=== PATIENT | female | born 1965 | race Caucasian/White ===

== ENCOUNTER 2024-09-21 11:05 | Day surgery (SDC) | payer OTHER ==
[~2024-09-21 11:05] MED LIST: LACTATED RINGERS 1,000 ML IV SCH; LIDOCAINE 1% (10MG/ML) FOR IV START INTRADERMA PRN
[2024-09-21] MEDS: IV FLUID CONTINUATION 1,000 ML IV ONE (11:29)
[2024-09-21 11:39] VITALS: RESP 16; TEMP 98
[2024-09-21] MEDS: LACTATED RINGERS 1,000 ML IV SCH (11:46)
[2024-09-21] MEDS ORDERED: LIDOCAINE 2% (PF) 20 MG/ML 5 ML VIAL ONE (11:52)
[2024-09-21] MEDS ORDERED: PROPOFOL 10 MG/ML 20 ML VIAL IV ONE (11:52)
[2024-09-21] MEDS ORDERED: KETAMINE HCL IN 0.9 % NACL 50 MG/5 ML SYRINGE ONE (11:52)
[2024-09-21] MEDS ORDERED: ONDANSETRON 4 MG/2 ML VIAL ONE (11:52)
[2024-09-21] MEDS ORDERED: MIDAZOLAM 2 MG/2 ML VIAL ONE (11:52)
[2024-09-21 12:42] VITALS: BP 104/62; PULSE 95
--- NOTE | 2024-09-21 19:52 | OP ---
OPERATIVE REPORT DATE OF SERVICE : PROCEDURES PERFORMED: Bronchoscopy, multiple endobronchial biopsy of right mainstem endobronchial tumor, brushings of endobronchial tumor/right mainstem, washings of right mainstem endobronchial tumor and right upper lobe. PREOPERATIVE DIAGNOSIS: Right lung mass. POSTOPERATIVE DIAGNOSIS: Right main stem endobronchial tumor extending into the right upper lobe bronchus with complete obstruction of the right upper lobe, also extending down to the right middle lobe and right lower lobe with partial occlusion of the right middle lobe and right lower lobe. ANESTHESIA USED: IV conscious sedation. DESCRIPTION OF PROCEDURE: The patient was prepared according to the bronchoscopy protocol. The patient was brought into the bronchoscopy suite, placed in the supine position, O2 was applied via Venti mask, and a bite block was applied. We monitored O2 saturation continuously, blood pressure was intermittently monitored, and cardiac rhythm was continuously monitored. After adequate IV conscious sedation, the bronchoscope was advanced through the bite block down to the area of the vocal cords. Lidocaine was applied over the vocal cords, and went through the vocal cords down to the trachea. The trachea was noted to be intact. Then as we got close to the alicia, I could visualize a cauliflower lesion involving the takeoff of the right main stem bronchus, and extending medially to the alicia, is also extending laterally and upward completely occluding the right upper lobe bronchus, partially occluding the right lower lobe bronchus, and partially occluding the right middle lobe bronchus. Multiple endobronchial biopsies were done from the right mainstem bronchus, and brushings were done, washings of the endobronchial tumor were also done. Minimal bleeding, the bleeding was negligible. Then an examination was done on the left side, there was no evidence of any endobronchial pathology on the left side. Again in summary, basically, a finding of endobronchial tumor involving the takeoff of the right mainstem bronchus, involving the anterolateral wall and medial wall of the right mainstem bronchus, extending almost to the alicia, and the tumor is involving the right upper lobe with complete occlusion of the right upper lobe, subtotal occlusion of the right middle lobe, and subtotal occlusion of the right lower lobe. MMODL / IJN: [id number] /
== END 2024-09-21 13:12 | disposition home or self-care (01) ==
LOC: ORWHC2ENDO 11:05
PROVIDERS: ATTEND Internal Medicine
DX: C34.01 Malignant neoplasm of right main bronchus (principal); I10 Essential (primary) hypertension; Z79.82 Long term (current) use of aspirin; F17.210 Nicotine dependence, cigarettes, uncomplicated; J44.9 Chronic obstructive pulmonary disease, unspecified; E78.5 Hyperlipidemia, unspecified
CPT/HCPCS: 88104; 88108; 88305; 87070; 87205; 87116; 87102; 87206; 31625; 31623; 31624; J2250; J2405; J2704; J2003

== ENCOUNTER → 2024-09-29 | Outpatient (CLI) | payer OTHER ==
--- NOTE | 2024-10-02 22:38 | PE ---
EXAMINATION TYPE: PET CT fusion skull to thigh DATE OF EXAM: 09/29/2024 COMPARISON: CT chest 08/17/2024 Prior PET/CT: None at this location. CLINICAL INDICATION: Female, 59 years old with history of R59.0 mediastinal lymphadenopathy, TECHNIQUE: Following the intravenous administration of 10.32 mCi of F-18 FDG, whole body images are performed from the skull base to the upper thigh. Images are reviewed on the computer in the coronal , axial, and sagittal planes. Reconstructed rotating images are created on independent workstation a nd reviewed on the computer. A localization and attenuation correction CT is performed in conjuncti on with the PET scan. DLP: 858.10 mGycm SCAN: Initial Blood glucose: 138 mg/dL Average Mediastinum SUV: 2.82 Average Liver SUV: 3.7 FINDINGS: NECK: Right mid supraclavicular adenopathy is present, image 63, SUV 15.32. THORAX: There are punctate areas of uptake within the superior mediastinum in the pretracheal space, image 80, SUV 7.5 posteriorly and 7.02 anteriorly. A pretracheal lymph node image 83 has an SUV of 15 .28 this is more intense slightly more inferior on image 85, SUV 18.39. A mediastinal lymph node late ral to the upper portion of the pretracheal lymph node image 83 SUV of 15.03. The right peribronchial intense uptake image 93 has an SUV of 20.08 ABDOMEN: No abnormal uptake PELVIS: No abnormal uptake OSSEOUS STRUCTURES: No abnormal uptake LOCALIZATION CT: Right paratracheal enlarged lymphadenopathy mediastinal lymphadenopathy is evident. COMPARISON: None IMPRESSION: 1. Multiple areas of abnormal uptake within the right supraclavicular region and within the mediastin um. Correlate for lymphoma. [facility], , 10/02/2024 10:35 PM
== END | disposition home or self-care (01) ==
LOC: RADPETMAIN 07:16
PROVIDERS: ATTEND Internal Medicine
DX: R59.0 Localized enlarged lymph nodes (principal)
CPT/HCPCS: 78815; A9552

== ENCOUNTER 2024-10-15 09:05 | Emergency (ER) | payer OTHER ==
[2024-10-15 09:34] LABS: Basophils # (A) 0.08 10*3/uL (0.00-0.10); Basophils % (A) 0.5 %; Eosinophils % (A) 1.8 %; HCT 41.8 % (37.2-46.3); HGB 14.4 g/dL (12.0-15.0); Lymphocytes # (A) 1.63 10*3/uL (0.90-5.00); Lymphocytes % (A) 9.6 %; MCH 30.5 pg (27.0-32.0); MCHC 34.4 g/dL (32.0-37.0); MCV 88.6 fL (80.0-97.0); Mean Platelet Volume 8.8 fL (9.5-12.2); Monocytes % (A) 4.7 %; Neutrophils % (A) 82.8 %; Platelet Count 318 10*3/uL (140-440); RBC 4.72 10*6/uL (4.10-5.20); RDW 12.8 % (11.5-14.5); WBC 17.02 10*3/uL (4.50-10.00)
[2024-10-15 09:53] LABS: ALT 21 U/L (4-34); AST 19 U/L (14-36); African American GFR (CKD) >90 (>60 ml/min/1.73 sqM); Alkaline Phosphatase 131 U/L (38-126); Anion Gap 11 mmol/L; Blood Urea Nitrogen 15 mg/dL (7-17); Carbon Dioxide 23 mmol/L (22-30); Chloride 105 mmol/L (98-107); Glucose 146 mg/dL (74-99); Non-African American GFR(CKD) >90 (>60 ml/min/1.73 sqM); Potassium 4.2 mmol/L (3.5-5.1); Sodium 139 mmol/L (137-145); Total Bilirubin 0.8 mg/dL (0.2-1.3); Total Protein 7.1 g/dL (6.3-8.2)
[2024-10-15 10:01] LABS: NT-Pro-B-Type Natriuretic Pept 147 pg/mL
--- NOTE | 2024-10-15 10:04 | XR ---
EXAMINATION TYPE: XR chest 2V DATE OF EXAM: 10/15/2024 9:56 AM COMPARISON: Chest radiographs from 09/18/2024, PET CT 09/29/2024 TECHNIQUE: XR chest 2V Frontal and lateral views of the chest. CLINICAL INDICATION:Female, 59 years old with history of difficulty breathing; history of lung cancer . FINDINGS: Lungs/Pleura: No pneumothorax. Development of moderate right pleural effusion with consolidation. The left lung is clear. Pulmonary vascularity: Unremarkable. Heart/mediastinum: Cardiomediastinal silhouette is partially obscured due to overlying and adjacent o pacities. Musculoskeletal: Multiple level degenerative disc disease changes seen throughout the spine. Other: Left chest subclavian approach Mediport catheter distal tip in the high SVC. IMPRESSION: Development of moderate right pleural effusion and consolidation. Likely related to reported lung can cer. [facility], , 10/15/2024 10:02 AM
[2024-10-15 10:05] LABS: Partial Thromboplastin Time 22.1 sec (22.0-30.0); Prothrombin Time 10.7 sec (10.0-12.5)
[2024-10-15 10:26] LABS: Influenza A Not Detected (Not Detectd); Influenza B Not Detected (Not Detectd); RSV Not Detected (Not Detectd)
[2024-10-15] MEDS: ACETAMINOPHEN TAB 500 MG TAB PO STA (10:46)
--- NOTE | 2024-10-15 11:24 | ED ---
SOB HPI - General Chief Complaint: Shortness of Breath Stated Complaint: GUY Time Seen by Provider: 10/15/24 09:10 Source: patient, EMS Mode of arrival: EMS Limitations: no limitations - History of Present Illness Initial Comments: 59-year-old female with recent diagnosis of lung cancer in September who presents to the emergency department reporting shortness of breath, especially with exertion. 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 She is currently wearing 4 L of oxygen at home and following with Dr. Geller from radiation oncology. She is supposed to start radiation tomorrow. She has not started any sort of treatment yet. States that she has had 2 turn her oxygen up to 5 L as she is extremely short of breath. States when she ambulates she drops into the 60s. Patient arrives tachycardic. There has been no use of steroids or breathing treatments as she was told that these would be futile. Patient denies hemoptysis. No chest pain. No history of PE or DVT. No calf pain or swelling. No other alleviating, precipitating or modifying factors - Related Data Home Medications Medication Instructions Recorded Confirmed Aspirin [Adult Low Dose Aspirin EC] 81 mg PO DAILY 09/19/24 09/21/24 Atorvastatin [Lipitor] 40 mg PO HS 09/19/24 09/21/24 Chlorthalidone 25 mg PO DAILY 09/19/24 09/21/24 Ergocalciferol [Vitamin D2 (1250 1 tab PO Q30D 09/19/24 09/21/24 Mcg = 73798 Iu)] Losartan [Cozaar] 100 mg PO HS 09/19/24 09/21/24 amLODIPine [Norvasc] 10 mg PO DAILY 09/19/24 09/21/24 Allergies Allergy/AdvReac Type Severity Reaction Status Date / Time No Known Allergies Allergy Verified 10/15/24 09:13 Review of Systems ROS Statement: Those systems with pertinent positive or pertinent negative responses have been documented in the HPI. ROS Other: All systems not noted in ROS Statement are negative. Past Medical History Past Medical History: Coronary Artery Disease (CAD), Hyperlipidemia, Hypertensio n Additional Past Medical History / Comment(s): "borderline polycythemia", Rt. lung abnormalities on CXR and CT scan History of Any Multi-Drug Resistant Organisms: None Reported Additional Past Surgical History / Comment(s): cervical conization, colonoscopy Past Anesthesia/Blood Transfusion Reactions: Postoperative Nausea & Vomiting (PONV) Past Psychological History: No Psychological Hx Reported Smoking Status: Current every day smoker Past Alcohol Use History: Rare Past Drug Use History: Marijuana - Past Family History Daughter(s) Family Medical History: Diabetes Mellitus Brother(s) Family Medical History: Diabetes Mellitus Mother Additional Family Medical History / Comment(s): colitis General Exam Limitations: no limitations General appearance: alert, in no apparent distress Head exam: Present: atraumatic, normocephalic, normal inspection Eye exam: Present: normal appearance, PERRL, EOMI. Absent: scleral icterus, conjunctival injection, periorbital swelling ENT exam: Present: normal exam, mucous membranes moist Neck exam: Present: normal inspection. Absent: tenderness, meningismus, lymphadenopathy Respiratory exam: Present: decreased breath sounds (On the right). Absent: respiratory distress, wheezes, rales, rhonchi, stridor Cardiovascular Exam: Present: normal rhythm, tachycardia, normal heart sounds. Absent: systolic murmur, diastolic murmur, rubs, gallop, clicks GI/Abdominal exam: Present: soft, normal bowel sounds. Absent: distended, tenderness, guarding, rebound, rigid Extremities exam: Present: normal inspection, full ROM, normal capillary refill. Absent: tenderness, pedal edema, joint swelling, calf tenderness Back exam: Present: normal inspection Neurological exam: Present: alert, oriented X3, CN II-XII intact Psychiatric exam: Present: normal affect, normal mood Skin exam: Present: warm, dry, intact, normal color. Absent: rash Course Vital Signs 10/15/24 10/15/24 10/15/24 09:06 09:42 10:48 Temperature 98.5 F Pulse Rate 124 H 116 H Respiratory 17 24 Rate Blood Pressure 110/77 107/75 O2 Sat by Pulse 87 L 93 L 94 L Oximetry 10/15/24 12:44 Temperature Pulse Rate 108 H Respiratory 22 Rate Blood Pressure 109/75 O2 Sat by Pulse 93 L Oximetry Medical Decision Making - Medical Decision Making Was pt. sent in by a medical professional or institution (, PA, AUTO [employer]ULER, urgent care, hospital, or [facility]...) When possible be specific @ -No Did you speak to anyone other than the patient for history (EMS, parent, family, police, friend...)? What history was obtained from this source @ -Spoke with the for history Did you review nursing and triage notes (agree or disagree)? Why? @ -I reviewed and agree with nursing and triage notes Were old charts reviewed (outside hosp., previous admission, EMS record, old EKG, old radiological studies, urgent care reports/EKG's, [facility] records)? Report findings @ -I reviewed the bronchoscopy that was performed on September 21 where the patient was diagnosed with squamous cell cancer Differential Diagnosis (chest pain, altered mental status, abdominal pain women, abdominal pain men, vaginal bleeding, weakness, fever, dyspnea, syncope, headache, dizziness, GI bleed, back pain, seizure, CVA, palpatations, mental health, musculoskeletal)? @ -Differential Dyspnea: Coronary syndrome, arrhythmia, tamponade, asthma, COPD, pulmonary embolism, pneumonia, pneumothorax, pulmonary effusion, anaphylaxis, diabetic ketoacidosis, flailed chest, pulmonary contusion, diaphragmatic rupture, anemia, neuromuscular, this is not meant to be an all-inclusive list. EKG interpreted by me (3pts min.). @ -Yes and demonstrates sinus tachycardia with a rate of 116. CO interval 173. QRS 94. QTc of 392. X-rays interpreted by me (1pt min.). @ -Yes which demonstrates possible pleural effusion on the right CT interpreted by me (1pt min.). @ -Yes which does not demonstrate a PE. There is collapse of the right middle and right lower lobe with invasion into the trachea and into the pulmonary artery U/S interpreted by me (1pt. min.). @ -None done What testing was considered but not performed or refused? (CT, X-rays, U/S, labs)? Why? @ -None What meds were considered but not given or refused? Why? @ -None Did you discuss the management of the patient with other professionals (professionals i.e. , PA, [employer]O [employer]ER, lab, RT, psych nurse, social media marketing manager, apparel manufacture instructor, teacher, third officer, caseworker intake)? Give summary @ -I spoke with Dr. Cabello who accepts transfer of the patient Was smoking cessation discussed for >3mins.? @ -No Was critical care preformed (if so, how long)? @ -No Were there social determinants of health that impacted care today? How? (Homelessness, low income, unemployed, alcoholism, drug addiction, transportation, low edu. Level, literacy, decrease access to med. care, snf, rehab)? @ -No Was there de-escalation of care discussed even if they declined (Discuss DNR or withdrawal of care, Hospice)? DNR status @ -Yes and the patient states she would like to be a DNR What co-morbidities impacted this encounter? (DM, HTN, Smoking, COPD, CAD, Cancer, CVA, ARF, Chemo, Hep., AIDS, mental health diagnosis, sleep apnea, morbid obesity)? @ -Lung cancer Was patient admitted / discharged? Hospital course, mention meds given and route, prescriptions, significant lab abnormalities, going to OR and other pertinent info. @ -Upon arrival patient seen and evaluated in bed 7. Thorough history and physical exam was performed. Patient arrives tachycardic. We do increase her oxygen to 6 L at the patient is extremely dyspneic. Laboratory studies are conducted. Chest x-ray was performed. D-dimer is elevated and therefore she does go for CT. This does not demonstrate a PE however the patient has complete opacification of her right middle and lower lobes due to obstruction by her bronchial mass. There is concern for invasion into the trachea and pulmonary artery on the right. I discussed these results with the patient. I feel that t he patient's only options may include radiation treatment. Her radiation oncologist is out of core [facility] and therefore the patient is requesting transfer to their facility so that she may maintain the same care team. She does have radiation scheduled for tomorrow at their campus. I did call and speak with Dr. Cabello who was agreeable to accept transfer the patient. COBRA forms are signed. Patient will be transferred to the emergency department in stable condition Undiagnosed new problem with uncertain prognosis? @ -No Drug Therapy requiring intensive monitoring for toxicity (Heparin, Nitro, Insulin, Cardizem)? @ -No Were any procedures done? @ -No Diagnosis/symptom? @ -Acute respiratory insufficiency/chronic respiratory failure, dyspnea on exertion, tachycardia, obstructing lung masssquamous cell carcinoma, elevated D-dimer, evaluation for PE Acute, or Chronic, or Acute on Chronic? @ -Acute Uncomplicated (without systemic symptoms) or Complicated (systemic symptoms)? @ -Complicated Side effects of treatment? @ -No Exacerbation, Progression, or Severe Exacerbation? @ -No Poses a threat to life or bodily function? How? (Chest pain, USA, RI, pneumonia, PE, COPD, DKA, ARF, appy, cholecystitis, CVA, Diverticulitis, Homicidal, Suicidal, threat to staff... and all critical care pts) @ -Yes this patient does have significant work of breathing - Lab Data Result diagrams: 10/15/24 09:10/15/24 09: Lab Results 10/15/24 10/15/24 10/15/24 Range/Units 09: 09: 09: WBC 17.02 H (4.50-10.00) 10*3/uL RBC 4.72 (4.10-5.20) 10*6/uL Hgb 14.4 (12.0-15.0) g/dL Hct 41.8 (37.2-46.3) % MCV 88.6 (80.0-97.0) fL MCH 30.5 (27.0-32.0) pg MCHC 34.4 (32.0-37.0) g/dL Plt Count 318 (140-440) 10*3/uL MPV 8.8 L (9.5-12.2) fL Immature Gran % (Auto) 0.6 % Neutrophils % 82.8 % Lymphocytes % 9.6 % Monocytes % 4.7 % Eosinophils % 1.8 % Basophils % 0.5 % Immature Gran # 0.11 H (0.00-0.04) 10*3/uL Neutrophils # 14.10 H (1.80-7.70) 10*3/uL Lymphocytes # 1.63 (0.90-5.00) 10*3/uL Monocytes # 0.80 (0.20-1.00) 10*3/uL Eosinophils # 0.30 (0.04-0.35) 10*3/uL Basophils # 0.08 (0.00-0.10) 10*3/uL PT 10.7 (10.0-12.5) sec INR 1.0 (<1.2) APTT 22.1 (22.0-30.0) sec D-Dimer 4.39 H (<0.60) mg/L FEU Sodium 139 (137-145) mmol/L Potassium 4.2 (3.5-5.1) mmol/L Chloride 105 (98-107) mmol/L Carbon Dioxide 23 (22-30) mmol/L Anion Gap 11 mmol/L BUN 15 (7-17) mg/dL Creatinine 0.69 (0.52-1.04) mg/dL Est GFR (CKD-EPI)AfAm >90 (>60 ml/min/1.73 sqM) Est GFR (CKD-EPI)NonAf >90 (>60 ml/min/1.73 sqM) Glucose 146 H (74-99) mg/dL Plasma Lactic Acid Hamlet (0.7-2.0) mmol/L Calcium 10.0 (8.4-10.2) mg/dL Total Bilirubin 0.8 (0.2-1.3) mg/dL AST 19 (14-36) U/L ALT 21 (4-34) U/L Alkaline Phosphatase 131 H (38-126) U/L Troponin I (0.000-0.034) ng/mL NT-Pro-B Natriuret Pep 147 pg/mL Total Protein 7.1 (6.3-8.2) g/dL Albumin 4.0 (3.5-5.0) g/dL Influenza Type A (PCR) (Not Detectd) Influenza Type B (PCR) (Not Detectd) RSV (PCR) (Not Detectd) SARS-CoV-2 (PCR) (Not Detectd) 10/15/24 10/15/24 10/15/24 Range/Units 09:28 09:28 09:36 WBC (4.50-10.00) 10*3/uL RBC (4.10-5.20) 10*6/uL Hgb (12.0-15.0) g/dL Hct (37.2-46.3) % MCV (80.0-97.0) fL MCH (27.0-32.0) pg MCHC (32.0-37.0) g/dL Plt Count (140-440) 10*3/uL MPV (9.5-12.2) fL Immature Gran % (Auto) % Neutrophils % % Lymphocytes % % Monocytes % % Eosinophils % % Basophils % % Immature Gran # (0.00-0.04) 10*3/uL Neutrophils # (1.80-7.70) 10*3/uL Lymphocytes # (0.90-5.00) 10*3/uL Monocytes # (0.20-1.00) 10*3/uL Eosinophils # (0.04-0.35) 10*3/uL Basophils # (0.00-0.10) 10*3/uL PT (10.0-12.5) sec INR (<1.2) APTT (22.0-30.0) sec D-Dimer (<0.60) mg/L FEU Sodium (137-145) mmol/L Potassium (3.5-5.1) mmol/L Chloride (98-107) mmol/L Carbon Dioxide (22-30) mmol/L Anion Gap mmol/L BUN (7-17) mg/dL Creatinine (0.52-1.04) mg/dL Est GFR (CKD-EPI)AfAm (>60 ml/min/1.73 sqM) Est GFR (CKD-EPI)NonAf (>60 ml/min/1.73 sqM) Glucose (74-99) mg/dL Plasma Lactic Acid Hamlet 1.4 (0.7-2.0) mmol/L Calcium (8.4-10.2) mg/dL Total Bilirubin (0.2-1.3) mg/dL AST (14-36) U/L ALT (4-34) U/L Alkaline Phosphatase (38-126) U/L Troponin I <0.012 (0.000-0.034) ng/mL NT-Pro-B Natriuret Pep pg/mL Total Protein (6.3-8.2) g/dL Albumin (3.5-5.0) g/dL Influenza Type A (PCR) Not Detected (Not Detectd) Influenza Type B (PCR) Not Detected (Not Detectd) RSV (PCR) Not Detected (Not Detectd) SARS-CoV-2 (PCR) Not Detected (Not Detectd) Disposition Clinical Impression: Tachycardia, Acute respiratory insufficiency, Lung cancer Disposition: OTHER INSTITUTION NOT DEFINED Condition: Serious Is patient prescribed a controlled substance at d/c from ED?: No Referrals: Pedro Paz MD [Primary Care Provider] - 1-2 days Time of Disposition: 13:36 - Out of Hospital Transfer - Req. Specs Out of Hospital Transfer - Requested Specifics: Other Emergency Center ([facility])
--- NOTE | 2024-10-15 11:44 | CT ---
EXAMINATION TYPE: CT chest angio for PE CT DLP: 525.7 mGycm, Automated exposure control for dose reduction was used. DATE OF EXAM: 10/15/2024 11:12 AM COMPARISON: Chest radiograph 10/15/2024, 09/18/2024, PET CT 09/29/2024, outside institution CT chest 07/23. CLINICAL INDICATION:Female, 59 years old with history of tachycardia, hypoxia, cancer dx; SOB, recent diagnosis of lung CA TECHNIQUE/CONTRAST: CTA scan of the thorax is performed with IV Contrast, patient injected with 100 mL of Isovue 370, pul monary embolism protocol. MIP images are created and reviewed. FINDINGS: Pulmonary Artery: There is no evidence for a filling defect within the pulmonary vasculature to sugge st acute pulmonary embolism. The pulmonary artery is of normal size. There is abrupt cut off of the right upper lobe pulmonary artery due to perihilar mass. Lungs/Pleura: The left lung is clear. No pneumothorax. Atelectasis/consolidation involving the right middle lobe and right lower lobe with air bronchograms and fluid within the bronchi. Partial atelecta sis of the medial right upper lobe. Small pulmonary micronodules identified within the right upper lo be measuring up to 2 mm. Trace right pleural effusion. Elevation the right hemidiaphragm. Airway: Appears to be invasion into the distal trachea from the right perihilar mass with abnormal no dularity (series 401, image 48). The trachea is patent as well. There is abrupt cut off of the right mainstem bronchus from the mass. Heart: Size within normal limits.No pericardial effusion. No significant coronary artery calcificatio ns. Vasculature: Ascending aortic aneurysm measuring up to 4.6 cm. Bovine aortic arch. Left chest wall Me diport catheter distal tip terminating in the high SVC. Multiple collateral vessels identified within the mediastinum and left chest. The superior vena cava appears patent. Mild atelectatic calcificatio n of the aorta and its branches. Mediastinum: There is redemonstration of prominent mediastinal adenopathy and right perihilar mass. T he mass measures grossly 3.2 x 3.1 cm with right paratracheal conglomerate adenopathy measuring up to 2.2 cm and subcarinal conglomerate adenopathy measuring up to 2.9 cm. These regions demonstrate FDG activity in prior PET/CT. Musculoskeletal: No acute osseous abnormalities. Mild multilevel degenerative disc disease. No aggres sive osseous lesion. Soft Tissues: Unremarkable. Lower neck: There is redemonstration of a right supraclavicular soft tissue mass measuring 3.8 x 1.6 cm. Demonstrated FDG activity on prior PET/CT. Upper Abdomen: Similar diffuse thickening of both adrenal glands. No FDG uptake on prior PET/CT. Favo red to represent adrenal hyperplasia. IMPRESSION: 1. No evidence of pulmonary embolism. 2. Redemonstration of infiltrative conglomerate mass within the right perihilar region extending into the mediastinum related to known lung cancer. There is abrupt cut off of the right mainstem bronchus with suspected invasion into the trachea. This results in postobstructive complete atelectasis and c onsolidation of the right middle and lower lobes. Partial atelectasis of the right upper lobe. Superi mposed pneumonia is not excluded. Additionally there is invasion with occlusion of the right upper lo be pulmonary artery. 3. Redemonstration of metastatic soft tissue mass in the right supraclavicular region. 4. Nonspecific small pulmonary micronodules are redemonstrated within the right upper lobe. [facility], , 10/15/2024 11:42 AM
[2024-10-15] MEDS: MORPHINE SULFATE 4 MG/ML SYRINGE IVP STA (14:40)
[2024-10-15 14:45] VITALS: BP 105/68; PULSE 100; RESP 20; TEMP 98.3
== END 2024-10-15 14:50 | disposition other institution (70) ==
LOC: EC 09:05
DX: R00.0 Tachycardia, unspecified (principal); J96.00 Acute respiratory failure, unspecified whether with hypoxia or hypercapnia; C34.90 Malignant neoplasm of unspecified part of unspecified bronchus or lung; F17.200 Nicotine dependence, unspecified, uncomplicated
CPT/HCPCS: 36415; 93005; 85379; 83880; 80053; 83605; 84484; 85025; 85610; 85730; 87636; 71046; 71275; 99285; 96374; J2270; Q9967

== ENCOUNTER 2024-12-14 20:38 | Inpatient (IN) | payer OTHER ==
[2024-12-14 21:45] LABS: Basophils # (A) 0.03 10*3/uL (0.00-0.10); Basophils % (A) 0.4 %; Eosinophils # (A) 0.01 10*3/uL (0.04-0.35); Eosinophils % (A) 0.1 %; HCT 31.8 % (37.2-46.3); Lymphocytes # (A) 0.89 10*3/uL (0.90-5.00); Lymphocytes % (A) 12.8 %; MCH 30.5 pg (27.0-32.0); MCHC 33.6 g/dL (32.0-37.0); MCV 90.6 fL (80.0-97.0); Monocytes # (A) 0.87 10*3/uL (0.20-1.00); Monocytes % (A) 12.5 %; Neutrophils # (A) 5.10 10*3/uL (1.80-7.70); Neutrophils % (A) 73.5 %; Platelet Count 178 10*3/uL (140-440); RBC 3.51 10*6/uL (4.10-5.20); RDW 18.7 % (11.5-14.5); WBC 6.95 10*3/uL (4.50-10.00)
[2024-12-14 21:52] LABS: HGB 10.7 g/dL (12.0-15.0)
[2024-12-14 22:00] LABS: ALT 17 U/L (4-34); AST 21 U/L (14-36); African American GFR (CKD) >90 (>60 ml/min/1.73 sqM); Albumin 3.5 g/dL (3.5-5.0); Alkaline Phosphatase 148 U/L (38-126); Anion Gap 9 mmol/L; Blood Urea Nitrogen 11 mg/dL (7-17); Calcium 9.6 mg/dL (8.4-10.2); Carbon Dioxide 23 mmol/L (22-30); Chloride 100 mmol/L (98-107); Glucose 137 mg/dL (74-99); Magnesium 1.6 mg/dL (1.6-2.3); Non-African American GFR(CKD) >90 (>60 ml/min/1.73 sqM); Potassium 4.2 mmol/L (3.5-5.1); Sodium 132 mmol/L (137-145); Total Protein 6.3 g/dL (6.3-8.2)
[2024-12-14 22:13] LABS: INR 1.0 (<1.2); Partial Thromboplastin Time 23.1 sec (22.0-30.0); Prothrombin Time 11.3 sec (10.0-12.5)
--- NOTE | 2024-12-14 22:28 | CT ---
EXAMINATION TYPE: CT abdomen pelvis w con CT DLP: 395.3 mGycm, Automated exposure control for dose reduction was used. DATE OF EXAM: 12/14/2024 10:17 PM COMPARISON: PET CT 10/15/2024 CLINICAL INDICATION:Female, 59 years old with history of dyspnea, eval for PE. History of lung cancer ; dyspnea-hx rt lung cancer TECHNIQUE: Standard CT of the abdomen and pelvis following the administration of 100 cc of Isovue 3 00 IV contrast material. Coronal and sagittal reformats were performed. FINDINGS: LOWER CHEST: Please see concurrent CTA chest for findings ABDOMEN LIVER: Unremarkable GALLBLADDER AND BILE DUCTS: Contracted gallbladder. No biliary duct dilatation. PANCREAS: Unremarkable. SPLEEN: Unremarkable. ADRENAL GLANDS: Similar nodular thickening of the bilateral adrenal glands. No corresponding suspicio us FDG activity in prior PET/CT. KIDNEYS AND URETERS: No evidence of hydronephrosis or renal calculus. The kidneys enhance symmetrical ly. Right renal lower pole simple 3.6 cm cyst. Left renal upper pole 1.2 cm cyst. No focal recommende d. Contrast is demonstrated within both collecting systems and the left proximal ureter on the delaye d phase. PELVIS BLADDER: Unremarkable REPRODUCTIVE: Unremarkable. ABDOMEN & PELVIS STOMACH AND BOWEL: Stomach and duodenum are unremarkable. No focal bowel wall thickening or surroundi ng inflammatory changes. The appendix is within normal limits. No evidence of bowel obstruction. PERITONEUM: No evidence of pneumoperitoneum or free fluid. VASCULATURE: Mild atherosclerotic calcifications are present throughout the abdominal aorta and its b ranches. No evidence of aortic aneurysm. MUSCULOSKELETAL: No acute osseous abnormalities. Mild multilevel degenerative disc disease. No aggres sive osseous lesion. LYMPH NODES: No evidence for lymphadenopathy. SOFT TISSUE/ABDOMINAL WALL: Unremarkable IMPRESSION: 1. No CT evidence for acute abdominal/pelvic process. 2. Similar bilateral adrenal gland nodular thickening. No suspicious FDG activity on prior PET/CT. Fa vored to represent adrenal hyperplasia however underlying metastasis is not excluded. [facility], , 12/14/2024 10:26 PM
--- NOTE | 2024-12-14 22:56 | CT ---
EXAMINATION TYPE: CT chest angio for PE CT DLP: 1207 mGycm, Automated exposure control for dose reduction was used. DATE OF EXAM: 12/14/2024 10:16 PM COMPARISON: CTA chest 12/14/2024, PET CT 09/29/2024 CLINICAL INDICATION:Female, 59 years old with history of dyspnea, eval for PE. history of lung cancer ; dyspnea-hx rt lung cancer TECHNIQUE/CONTRAST: CTA scan of the thorax is performed with IV Contrast, patient injected with 100 mL of Isovue 370, pul monary embolism protocol. MIP images are created and reviewed. FINDINGS: Pulmonary Artery: Multiple filling defects identified within the bilateral segmental and subsegmental pulmonary arteries. Additional filling defect consistent with saddle pulmonary embolus identified. F illing defects identified within both main pulmonary arteries. No dilatation of the main pulmonary ar anabelle. No reflux of contrast into the IVC. Lungs/Pleura: No pleural effusion or pneumothorax. Similar minimal biapical pleural-parenchymal scarr ing. Linear opacity within the lingula is new. Wedge-shaped consolidation/atelectasis is new from chris or examination involving the right upper lobe. It extends from the pulmonary hilum with some air bron chograms demonstrated. Decreased abnormal right hilar soft tissue from prior exam. Patchy peripheral groundglass opacities within the right lower lobe are new. Improved aeration of the right lower and r ight middle lobes from prior exam. No new suspicious pulmonary nodule. Elevation of the right hemidia phragm. Airway: Large airways are patent. Heart: Size within normal limits.No pericardial effusion. No significant coronary artery calcificatio ns. There is some flattening of the interventricular septum. Vasculature: Stable ascending thoracic aortic aneurysm measuring up to 4.5 cm. Bovine aortic arch. Le ft anterior chest wall Mediport catheter with subclavian approach. This terminates in the mid SVC. An additional atherosclerotic calcification of the aorta and its branches. Mediastinum: Decreased size of mediastinal adenopathy with examples including subcarinal maximal thic kness measuring up to 2.1 cm, previously measured up to 2.9 cm. Improvement of right hilar soft tissu e disease from prior exam. Musculoskeletal: No acute osseous abnormalities. No aggressive osseous lesion. Mild multilevel degene rative disc disease Soft Tissues: Unremarkable. Lower neck: Decreased appearance of abnormal metastatic soft tissue within the right supraclavicular region from prior exam. Upper Abdomen: Please refer to dedicated CT abdomen pelvis of same day for findings. IMPRESSION: 1. Saddle pulmonary embolism with multiple bilateral segmental and subsegmental pulmonary emboli. The re is findings concerning for early right heart strain with flattening of the interventricular septum . However there is no significant reflux into the IVC or dilatation of the main pulmonary artery. 2. Improved aeration of the right middle and lower lobes from prior CT however there are some develop ing peripheral groundglass opacities within the right lower lobe and lingula concerning for possible developing pulmonary infarcts in the setting of #1. Other etiologies include infectious/inflammatory processes versus posttreatment changes. 3. Overall improved appearance of right perihilar lung malignancy and right supraclavicular/mediastin al adenopathy from prior exam. Suspected postobstructive right upper lobe atelectasis. Findings communicated to Dr. Bradley Norton MD on 12/14/2024 10:[address] Jair Rowley . [facility], , 12/14/2024 10:53 PM
[2024-12-14] MEDS ORDERED: HEPARIN SODIUM 1,000 UN/ML (10ML VL) IV PRN (23:00)
[2024-12-14] MEDS ORDERED: VANCOMYCIN IV PER PHARMACY 1 EACH MISC MISCELLANE PRN (23:01)
[2024-12-14] MEDS: LACTATED RINGERS 1,000 ML IV SCH ×2 (23:08→23:09)
[2024-12-14] MEDS: ACETAMINOPHEN TAB 500 MG TAB PO STA (23:09)
--- NOTE | 2024-12-14 23:10 | XR ---
EXAMINATION TYPE: XR chest 2V DATE OF EXAM: 12/14/2024 9:59 PM CLINICAL INDICATION:Female, 59 years old with history of Chest Pain; [facility] COMPARISON: CTA chest from the same day TECHNIQUE: XR chest 2V Frontal view of the chest. FINDINGS: Elevated right hemidiaphragm. Extensive atelectatic changes are noted in the right upper lung zone. T here are patchy opacities seen in the right lower lung zone. There are some bandlike areas of scarrin g in the left lower lung zone. No pneumothorax. Cardiac silhouette is within normal limits. No acute osseous abnormalities. Left chest port is seen with distal tip of the catheter terminating at the cav oatrial junction. IMPRESSION: Extensive atelectasis in the right upper lung zone with patchy opacities seen in the right lower lung zone. Elevated right hemidiaphragm. Please see dedicated CT chest from same day for further details. [facility], , 12/14/2024 11:08 PM
[2024-12-14] MEDS: cefTRIAXone IN SWFI 1,000 MG/10 ML SYRINGE IVP STA (23:11)
[2024-12-14] MEDS ORDERED: NALOXONE 0.4 MG/ML 1 ML VIAL IV PRN ×2 (23:18→23:20)
[2024-12-14] MEDS ORDERED: ONDANSETRON 4 MG/2 ML VIAL IVP PRN (23:20)
[2024-12-14] MEDS: HEPARIN SODIUM 1,000 UN/ML (10ML VL) IV ONE (23:21)
--- NOTE | 2024-12-14 23:25 | ED ---
General Adult HPI - General Chief complaint: Chest Pain Stated complaint: Rapid Heart Rate Time Seen by Provider: 12/14/24 21:30 Source: patient, RN notes reviewed, old records reviewed Mode of arrival: wheelchair Limitations: physical limitation - History of Present Illness Initial comments: Patient is a 59-year-old female presents Emergency Department complaining of tachycardia and shortness of breath. Has been ongoing for 1 week. Patient was recently diagnosed within last few months with lung cancer. Received treatment and inpatient stay with radiation and chemotherapy at outside hospital. Went home approximately 2 weeks ago. For the last week has been having increased shortness of breath. Has not noticed any increased lower extremity swelling or edema. Denies any chest discomfort. Denies any abdominal pain, nausea, vomiti ng. No other acute complaints. Seems to have been progressive. Presents for further evaluation at this time. Think she may be dehydrated as she has been having issues swallowing postradiation but that has been improving. - Related Data Home Medications Medication Instructions Recorded Confirmed Aspirin [Adult Low Dose Aspirin EC] 81 mg PO DAILY 09/19/24 12/15/24 Atorvastatin [Lipitor] 40 mg PO HS 09/19/24 12/15/24 Fluconazole [Diflucan] 100 mg PO DAILY 12/15/24 12/15/24 Hydrocodone/Acetaminophen 10 ml PO Q8H PRN 12/15/24 12/15/24 [Hydrocodone/Acetaminophen 7.5-325/15 ML] Magic Mouth Wash 10 ml PO 5XD 12/15/24 12/15/24 Sucralfate [Carafate] 1 gm PO QID 12/15/24 12/15/24 guaiFENesin SYRUP 100MG/5ML 200 mg PO Q4H PRN 12/15/24 12/15/24 [Robitussin] Allergies Allergy/AdvReac Type Severity Reaction Status Date / Time No Known Allergies Allergy Verified 12/15/24 11:37 Review of Systems ROS Statement: Those systems with pertinent positive or pertinent negative responses have been documented in the HPI. Review of Systems: CONST: Denies fever EYES: Denies blurry vision ENT: Denies nasal congestion C/V: Denies Chest pain RESP: Endorses shortness of breath GI: Denies abdominal pain : Denies dysuria SKIN: Denies rash. MSK: Denies joint pain. NEURO: Denies headache ROS Other: All systems not noted in ROS Statement are negative. Past Medical History Past Medical History: Coronary Artery Disease (CAD), Hyperlipidemia, Hypertension Additional Past Medical History / Comment(s): "borderline polycythemia", Rt. lung abnormalities on CXR and CT scan History of Any Multi-Drug Resistant Organisms: None Reported Additional Past Surgical History / Comment(s): cervical conization, colonoscopy Past Anesthesia/Blood Transfusion Reactions: Postoperative Nausea & Vomiting (PONV) Past Psychological History: No Psychological Hx Reported Smoking Status: Current every day smoker Past Alcohol Use History: Rare Past Drug Use History: Marijuana - Past Family History Daughter(s) Family Medical History: Diabetes Mellitus Brother(s) Family Medical History: Diabetes Mellitus Mother Additional Family Medical History / Comment(s): colitis General Exam - General Exam Comments Initial Comments: General: Appears with increased shortness of breath. Low-grade fever. HEAD: Normal with no signs of head trauma. EYES: PERRLA, EOMI, conjunctiva normal, no discharge. ENT: Hearing grossly intact, normal oropharynx. RESPIRATORY: Increased work of breathing. Saturating adequately on baseline 1 to 2 L nasal cannula oxygen. Lung sounds are mildly coarse. C/V: Regular rhythm with tachycardia. S1-S2 auscultated. No significant peripheral edema. Peripheral pulses 2+ intact throughout. ABD: Abd is soft, nontender, nondistended EXT: Normal range of motion, no obvious deformity SKIN: No rashes or lesions observed on exposed skin. NEURO: Alert and oriented x 4. Limitations: physical limitation Course Vital Signs 12/14/24 12/14/24 12/15/24 21:17 23:48 00:19 Temperature 100.9 F H Pulse Rate 131 H 118 H 115 H Respiratory 22 20 18 Rate Blood Pressure 115/85 128/94 88/65 O2 Sat by Pulse 94 L 94 L 97 Oximetry 12/15/24 12/15/24 12/15/24 01:00 02:00 03:00 Temperature Pulse Rate 112 H 113 H 111 H Respiratory 18 Rate Blood Pressure 105/78 91/63 92/59 O2 Sat by Pulse 94 L 96 94 L Oximetry 12/15/24 12/15/24 12/15/24 04:00 05:00 05:30 Temperature 99.3 F Pulse Rate 112 H 113 H 122 H Respiratory 20 Rate Blood Pressure 99/68 98/72 107/76 O2 Sat by Pulse 96 95 94 L Oximetry Medical Decision Making - Medical Decision Making Was pt. sent in by a medical professional or institution (, PA, [employer], urgent care, hospital, or usp...) When possible be specific @ -No Did you speak to anyone other than the patient for history (EMS, parent, family, police, friend...)? What history was obtained from this source @ -No Did you review nursing and triage notes (agree or disagree)? Why? @ -I reviewed and agree with nursing and triage notes Were old charts reviewed (outside hosp., previous admission, EMS record, old EKG, old radiological studies, urgent care reports/EKG's, usp records)? Report findings @ -No old charts were reviewed Differential Diagnosis (chest pain, altered mental status, abdominal pain women, abdominal pain men, vaginal bleeding, weakness, fever, dyspnea, syncope, headache, dizziness, GI bleed, back pain, seizure, CVA, palpatations, mental health, musculoskeletal)? @ -Differential Dyspnea: Coronary syndrome, arrhythmia, tamponade, asthma, COPD, pulmonary embolism, pneumonia, pneumothorax, pulmonary effusion, anaphylaxis, diabetic ketoacidosis, flailed chest, pulmonary contusion, diaphragmatic rupture, anemia, neuromuscular, this is not meant to be an all-inclusive list. EKG interpreted by me (3pts min.). @ -As above X-rays interpreted by me (1pt min.). @ -Chest x-ray reveals atelectasis in the right upper lung with patchy opacities in the right lower lung. CT interpreted by me (1pt min.). @ -CT abdomen pelvis shows no obvious acute intra-abdominal process. CT angiogram of the chest reveals a large saddle pulmonary embolism with multiple bilateral segmental and subsegmental pulmonary emboli. Possible early right heart strain with flattening of the interventricular septum. Patient has some developing peripheral groundglass opacities in the right lower lobe and lingula concerning for pulmonary infarcts versus possible pneumonia. Improved appearance of the right perihilar lung malignancy with some postobstructive right upper lobe atelectasis. U/S interpreted by me (1pt. min.). @ -Venous duplex positive for bilateral DVTs. What testing was considered but not performed or refused? (CT, X-rays, U/S, labs)? Why? @ -None What meds were considered but not given or refused? Why? @ -None Did you discuss the management of the patient with other professionals (lala duval i.e. , PA, [employer], lab, RT, psych nurse, psychiatric social worker supervisor, die baker, teacher, correctional officer, top case assembler)? Give summary @ -Discussed with ICU midlevel provider We discussed 3 S. versus ICU and patient will be admitted to 3 S. at this time as ICU is full. He will closely monitor overnight. Patient is hemodynamically stable at time of admission. Discussed with [facility] on-call, vascular surgeon Dr. Moeller he was in agreement with the plan. Requested troponin trending, echo, was in agreement that admission to ICU or stepdown. Discussed with the admitting provider, Dr. Paz who accepted the admission. Was smoking cessation discussed for >3mins.? @ -No Was critical care preformed (if so, how long)? @ -Yes, 45 minutes Were there social determinants of health that impacted care today? How? (Homelessness, low income, unemployed, alcoholism, drug addiction, transportation, low edu. Level, literacy, decrease access to med. care, alf, rehab)? @ -No Was there de-escalation of care discussed even if they declined (Discuss DNR or withdrawal of care, Hospice)? DNR status @ -No What co-morbidities impacted this encounter? (DM, HTN, Smoking, COPD, CAD, Cancer, CVA, ARF, Chemo, Hep., AIDS, mental health diagnosis, sleep apnea, morbid obesity)? @ -Cancer, recent hospital stay Was patient admitted / discharged? Hospital course, mention meds given and route, prescriptions, significant lab abnormalities, going to OR and other pertinent info. @ -Patient presents for increased shortness of breath. History of cancer. Is tachycardic. Chronic hypoxia on baseline nasal cannula oxygen. Hemodynamically stable otherwise. Low-grade fever. With her history we will obtain CT angiogram of the chest as well as CT abdomen pelvis. We also obtain infectious labs. Patient was in agreement this plan. Vital signs discussed above. EKG shows no signs of acute ischemia other than sinus tachycardia. Labs remarkable for an elevated D-dimer of [address] was already ordered. Troponin is elevated minimally to 0.042. BNP is 725 which is within acceptable limits for the patient's age. Viral swabs negative. At this time, is waiting for CT results. I did want a cover the patient for possible pneumonia considering her symptoms as well as having multiple SIRS criteria. She did meet sepsis criteria at 2300. Vancomycin and cefepime ordered for the patient. Patient has already received a 2 L IV fluid bolus and was placed on maintenance infusion of lactated Ringer's. Blood cultures were obtained and sent. Rocephin was ordered empirically by another provider while patient was in the waiting room but this had not yet been given. I discussed with nursing staff and I did cancel this order as I switched antibiotics. Patient technically meets sepsis criteria as described above however all symptoms could also be secondary to the large PE. She does appear to have pneumonia and therefore will be treated as such. CT abdomen pelvis negative for any obvious acute process. CTA of the chest shows a large saddle PE with possible early right heart strain as well as possible pneumonia versus pulmonary infarcts. Redemonstration of the known lung malignancy. At this time, patient was started on high-dose heparin therapy for the PE. Echo was ordered. Discussed with ICU midlevel provider Mohsen. We discussed 3 S. versus ICU and patient will be admitted to 3 S. at this time as ICU is full. He will closely monitor overnight. Patient is hemodynamically stable at time of admission. Discussed with [facility] on-call, vascular surgeon Dr. Moeller he was in agreement with the plan. Requested troponin trending, echo, was in agreement that admission to ICU or stepdown. Discussed with the admitting provider, Dr. Paz who accepted the admission. Patient was updated of everything and was in agreement plan for admission. Undiagnosed new problem with uncertain prognosis? @ -No Drug Therapy requiring intensive monitoring for toxicity (Heparin, Nitro, Ins ulin, Cardizem)? @ -No Were any procedures done? @ -No Diagnosis/symptom? @ -Saddle pulmonary embolism, pulmonary infarct, sepsis, pneumonia. Bilateral DVTs. Acute, or Chronic, or Acute on Chronic? @ -Acute Uncomplicated (without systemic symptoms) or Complicated (systemic symptoms)? @ -Complicated Side effects of treatment? @ -No Exacerbation, Progression, or Severe Exacerbation? @ -No Poses a threat to life or bodily function? How? (Chest pain, USA, LA, pneumonia, PE, COPD, DKA, ARF, appy, cholecystitis, CVA, Diverticulitis, Homicidal, Suicidal, threat to staff... and all critical care pts) @ -Yes - Lab Data Result diagrams: 12/15/24 06:43 12/15/24 06:43 Lab Results 12/14/24 12/14/24 12/14/24 Range/Units 21:38 21:38 21:38 WBC 6.95 (4.50-10.00) 10*3/uL RBC 3.51 L (4.10-5.20) 10*6/uL Hgb 10.7 L D (12.0-15.0) g/dL Hct 31.8 L (37.2-46.3) % MCV 90.6 (80.0-97.0) fL MCH 30.5 (27.0-32.0) pg MCHC 33.6 (32.0-37.0) g/dL Plt Count 178 (140-440) 10*3/uL MPV 9.0 L (9.5-12.2) fL Immature Gran % (Auto) 0.7 % Neutrophils % 73.5 % Lymphocytes % 12.8 % Monocytes % 12.5 % Eosinophils % 0.1 % Basophils % 0.4 % Immature Gran # 0.05 H (0.00-0.04) 10*3/uL Neutrophils # 5.10 (1.80-7.70) 10*3/uL Lymphocytes # 0.89 L (0.90-5.00) 10*3/uL Monocytes # 0.87 (0.20-1.00) 10*3/uL Eosinophils # 0.01 L (0.04-0.35) 10*3/uL Basophils # 0.03 (0.00-0.10) 10*3/uL PT 11.3 (10.0-12.5) sec INR 1.0 (<1.2) APTT 23.1 (22.0-30.0) sec D-Dimer 11.79 H (<0.60) mg/L FEU Sodium 132 L (137-145) mmol/L Potassium 4.2 (3.5-5.1) mmol/L Chloride 100 (98-107) mmol/L Carbon Dioxide 23 (22-30) mmol/L Anion Gap 9 mmol/L BUN 11 (7-17) mg/dL Creatinine 0.54 (0.52-1.04) mg/dL Est GFR (CKD-EPI)AfAm >90 (>60 ml/min/1.73 sqM) Est GFR (CKD-EPI)NonAf >90 (>60 ml/min/1.73 sqM) Glucose 137 H (74-99) mg/dL Plasma Lactic Acid Hamlet (0.7-2.0) mmol/L Calcium 9.6 (8.4-10.2) mg/dL Magnesium 1.6 (1.6-2.3) mg/dL Total Bilirubin 0.7 (0.2-1.3) mg/dL AST 21 (14-36) U/L ALT 17 (4-34) U/L Alkaline Phosphatase 148 H (38-126) U/L Troponin I (0.000-0.034) ng/mL NT-Pro-B Natriuret Pep pg/mL Total Protein 6.3 (6.3-8.2) g/dL Albumin 3.5 (3.5-5.0) g/dL Influenza Type A (PCR) (Not Detectd) Influenza Type B (PCR) (Not Detectd) RSV (PCR) (Not Detectd) SARS-CoV-2 (PCR) (Not Detectd) 12/14/24 12/14/24 12/14/24 Range/Units 21:38 21:38 21:38 WBC (4.50-10.00) 10*3/uL RBC (4.10-5.20) 10*6/uL Hgb (12.0-15.0) g/dL Hct (37.2-46.3) % MCV (80.0-97.0) fL MCH (27.0-32.0) pg MCHC (32.0-37.0) g/dL Plt Count (140-440) 10*3/uL MPV (9.5-12.2) fL Immature Gran % (Auto) % Neutrophils % % Lymphocytes % % Monocytes % % Eosinophils % % Basophils % % Immature Gran # (0.00-0.04) 10*3/uL Neutrophils # (1.80-7.70) 10*3/uL Lymphocytes # (0.90-5.00) 10*3/uL Monocytes # (0.20-1.00) 10*3/uL Eosinophils # (0.04-0.35) 10*3/uL Basophils # (0.00-0.10) 10*3/uL PT (10.0-12.5) sec INR (<1.2) APTT (22.0-30.0) sec D-Dimer (<0.60) mg/L FEU Sodium (137-145) mmol/L Potassium (3.5-5.1) mmol/L Chloride (98-107) mmol/L Carbon Dioxide (22-30) mmol/L Anion Gap mmol/L BUN (7-17) mg/dL Creatinine (0.52-1.04) mg/dL Est GFR (CKD-EPI)AfAm (>60 ml/min/1.73 sqM) Est GFR (CKD-EPI)NonAf (>60 ml/min/1.73 sqM) Glucose (74-99) mg/dL Plasma Lactic Acid Hamlet 0.9 (0.7-2.0) mmol/L Calcium (8.4-10.2) mg/dL Magnesium (1.6-2.3) mg/dL Total Bilirubin (0.2-1.3) mg/dL AST (14-36) U/L ALT (4-34) U/L Alkaline Phosphatase (38-126) U/L Troponin I 0.042 H* (0.000-0.034) ng/mL NT-Pro-B Natriuret Pep 725 pg/mL Total Protein (6.3-8.2) g/dL Albumin (3.5-5.0) g/dL Influenza Type A (PCR) (Not Detectd) Influenza Type B (PCR) (Not Detectd) RSV (PCR) (Not Detectd) SARS-CoV-2 (PCR) (Not Detectd) 12/14/24 Range/Units 22:53 WBC (4.50-10.00) 10*3/uL RBC (4.10-5.20) 10*6/uL Hgb (12.0-15.0) g/dL Hct (37.2-46.3) % MCV (80.0-97.0) fL MCH (27.0-32.0) pg MCHC (32.0-37.0) g/dL Plt Count (140-440) 10*3/uL MPV (9.5-12.2) fL Immature Gran % (Auto) % Neutrophils % % Lymphocytes % % Monocytes % % Eosinophils % % Basophils % % Immature Gran # (0.00-0.04) 10*3/uL Neutrophils # (1.80-7.70) 10*3/uL Lymphocytes # (0.90-5.00) 10*3/uL Monocytes # (0.20-1.00) 10*3/uL Eosinophils # (0.04-0.35) 10*3/uL Basophils # (0.00-0.10) 10*3/uL PT (10.0-12.5) sec INR (<1.2) APTT (22.0-30.0) sec D-Dimer (<0.60) mg/L FEU Sodium (137-145) mmol/L Potassium (3.5-5.1) mmol/L Chloride (98-107) mmol/L Carbon Dioxide (22-30) mmol/L Anion Gap mmol/L BUN (7-17) mg/dL Creatinine (0.52-1.04) mg/dL Est GFR (CKD-EPI)AfAm (>60 ml/min/1.73 sqM) Est GFR (CKD-EPI)NonAf (>60 ml/min/1.73 sqM) Glucose (74-99) mg/dL Plasma Lactic Acid Hamlet (0.7-2.0) mmol/L Calcium (8.4-10.2) mg/dL Magnesium (1.6-2.3) mg/dL Total Bilirubin (0.2-1.3) mg/dL AST (14-36) U/L ALT (4-34) U/L Alkaline Phosphatase (38-126) U/L Troponin I (0.000-0.034) ng/mL NT-Pro-B Natriuret Pep pg/mL Total Protein (6.3-8.2) g/dL Albumin (3.5-5.0) g/dL Influenza Type A (PCR) Not Detected (Not Detectd) Influenza Type B (PCR) Not Detected (Not Detectd) RSV (PCR) Not Detected (Not Detectd) SARS-CoV-2 (PCR) Not Detected (Not Detectd) - EKG Data -: EKG Interpreted by Me EKG Comments: 12-lead Electrocardiogram Interpretation Note EKG was reviewed and interpreted by myself. 12-lead ECG performed at 2128 is interpreted by me as revealing sinus tachycardia at a rate of 130 beats per minute. Thayne is normal. [place] interval is 140 ms, QRS duration is 93 ms, QTc is 410 ms.. There were no ST or T wave abnormalities to suggest myocardial ischemia or injury. R wave progression across the precordium was delayed. By my interpretation this EKG is non-diagnostic for acute ischemia. Critical Care Time Critical Care Time: Yes Total Critical Care Time: 45 Disposition Clinical Impression: Pulmonary embolism, Pneumonia, Pulmonary embolism and infarction, Sepsis, DVT (deep venous thrombosis) Disposition: ADMITTED IP TO THIS HOSP Condition: Serious Time of Disposition: 23:24
[2024-12-14] MEDS: HEPARIN SOD,PORK IN 0.45% NACL 25,000 UNIT in 0.45% NACL 1 250ML.BAG IV SCH (23:27)
[2024-12-14] MEDS: VANCOMYCIN 1,500 MG in SODIUM CHLORIDE 0.9% 500 ML 500 ML IVPB ONE (23:32)
[2024-12-14 23:53] LABS: RSV Not Detected (Not Detectd)
[2024-12-15] MEDS: SODIUM CHLORIDE 0.9% 1,000 ML IV SCH (02:44)
[2024-12-15] MEDS: CEFEPIME 2 GM in SODIUM CHLORIDE 0.9% 100 ML IVPB SCH (02:49)
--- NOTE | 2024-12-15 03:18 | US ---
EXAM: US Duplex Bilateral Lower Extremities Veins CLINICAL HISTORY: Pulmonary embolus TECHNIQUE: Real-time duplex ultrasound scan of the bilateral lower extremity veins integrating B-mode two-dimensional vascular structure, Doppler spectral analysis, color flow Doppler imaging and compression. COMPARISON: No relevant prior studies available. FINDINGS: Right deep veins: Occlusive deep vein thrombosis of the right popliteal, posterior tibial and peroneal veins. The common femoral and superficial femoral vein are patent. Right superficial veins: Unremarkable. No thrombus in the visualized right great saphenous vein. Left deep veins: Nearly completely occlusive deep venous thrombosis of the left posterior tibial vein. The left common femoral vein, superficial femoral vein and popliteal vein are patent. Left superficial veins: Unremarkable. No thrombus in the visualized left great saphenous vein. Soft tissues: Incidentally 1.9 x 0.9 x 1.7 cm left popliteal fossa cyst. IMPRESSION: 1. Occlusive deep vein thrombosis of the right popliteal, posterior tibial and peroneal veins. 2. Nearly completely occlusive deep venous thrombosis of the left posterior tibial vein. 3. Incidentally 1.9 x 0.9 x 1.7 cm left popliteal fossa cyst. <MYCVCSECTION> Communications: 12/15/24 03:25 Verify Receipt Verified receipt with [facility] on 12/15 03:25 (-04:00)
[2024-12-15] MEDS: cefTRIAXone IN SWFI 1,000 MG/10 ML SYRINGE IVP STA (04:31)
--- NOTE | 2024-12-15 04:36 | P.CNPUL ---
History of Present Illness Consult date: 12/15/24 Requesting physician: Bradley Norton Reason for consult: pulmonary embolism Chief complaint: Racing heart, palpitations History of present illness: Patient is a 59-year-old female with past medical history significant for non- small cell lung cancer diagnosed back in September,. Dr. 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 Follow-up PET showing areas of uptake within the right supraclavicular region as well as the mediastinum. She has been following with [place] [facility] [place] completed 6 weeks of radiation to the chest as well as 7 weeks of chemotherapy with CarboTaxol. Last dose of chemotherapy treatment was 2 weeks ago today. Additionally, patient has history of hyperlipidemia, hypertension. Her primary care provider is Dr. Paz. Came to the emergency department for evaluation last night. She was having shortness of breath and increased heart rate with palpitations on exertion. She thought she was dehydrated. Reports trouble/painful swallowing following radiation to her chest. Workup in the ED including a D-dimer which was elevated in setting chest CT angiogram which was positive for saddle pulmonary embolism with multiple bilateral segmental and subsegmental pulmonary emboli. Flattening of the interventricular septum concerning for early right-sided heart strain. No significant reflux into the IVC or dilation of the main pulmonary artery. Additionally, improvement in patient's right bulky mass with increased aeration. There was developing groundglass opacities within the right lower lobe and lingula. Differential including radiation pneumonitis, infectious process, inflammatory process, or possible pulmonary infarcts. Labs including a CBC with a WBC count of 6.9, hemoglobin 10.7 g/dL, platelets 178. D-dimer 11.8. CMP unremarkable, electrolytes WDL with exception of sodium 132. Glucose 137. Troponin 0.042. Viral 4 Plex negative for influenza A/B, RSV, COVID. I am seeing this patient in emergency department. Heparin is being started at the moment. She is on 2 L/min nasal cannula which she states she wears at home. She is tachycardic with a heart rate in the 120s. Blood pressure is normotensive. There is a 1 L fluid bolus ordered. Endorses above-mentioned symptoms. She has had a nonproductive cough over the last 2 weeks. Febrile on arrival, possibility due to PE. She was placed on empiric antibiotics in the ED. She denies any chest pain, hemoptysis, lightheadedness or syncopal events. No unilateral lower extremity edema. No previous history of PE. Vascular team on- call for EKOS was notified Review of Systems Constitutional: Reports fatigue, Reports fever, Reports weight loss (Approximately 50 pound weight loss since fall), Denies chills, Denies poor appetite, Denies sweats, Denies weight gain Ears, nose, mouth and throat: Reports dysphagia, Reports odynophagia, Denies epistaxis, Denies nasal congestion, Denies nasal discharge, Denies post-nasal drip, Denies sinus pain, Denies sinus pressure, Denies sore throat Cardiovascular: Reports rapid heart beat, Denies chest pain, Denies lightheadedness, Denies orthopnea, Denies palpitations, Denies syncope Respiratory: Reports cough, Reports dyspnea, Reports home oxygen, Denies congestion, Denies cough with sputum, Denies hemoptysis Gastrointestinal: Denies abdominal pain, Denies change in bowel habits, Denies diarrhea, Denies nausea, Denies vomiting Genitourinary: Denies dysuria Musculoskeletal: Denies limitation of motion Integumentary: Denies rash, Denies unusual bruising Neurological: Reports headaches, Denies seizures, Denies syncope Psychiatric: Denies anxiety, Denies depression Past Medical History Past Medical History: Coronary Artery Disease (CAD), Hyperlipidemia, Hypertension Additional Past Medical History / Comment(s): "borderline polycythemia", Rt. lung abnormalities on CXR and CT scan History of Any Multi-Drug Resistant Organisms: None Reported Additional Past Surgical History / Comment(s): cervical conization, colonoscopy Past Anesthesia/Blood Transfusion Reactions: Postoperative Nausea & Vomiting (PONV) Past Psychological History: No Psychological Hx Reported Smoking Status: Current every day smoker Past Alcohol Use History: Rare Past Drug Use History: Marijuana - Past Family History Daughter(s) Family Medical History: Diabetes Mellitus Brother(s) Family Medical History: Diabetes Mellitus Mother Additional Family Medical History / Comment(s): colitis Medications and Allergies Home Medications Medication Instructions Recorded Confirmed Type Aspirin [Adult Low Dose Aspirin EC] 81 mg PO DAILY 09/19/24 12/15/24 History Atorvastatin [Lipitor] 40 mg PO HS 09/19/24 12/15/24 History Fluconazole [Diflucan] 100 mg PO DAILY 12/15/24 12/15/24 History Hydrocodone/Acetaminophen 10 ml PO Q8H PRN 12/15/24 12/15/24 History [Hydrocodone/Acetaminophen 7.5-325/15 ML] Magic Mouth Wash 10 ml PO 5XD 12/15/24 12/15/24 History Sucralfate [Carafate] 1 gm PO QID 12/15/24 12/15/24 History guaiFENesin SYRUP 100MG/5ML 200 mg PO Q4H PRN 12/15/24 12/15/24 History [Robitussin] Allergies Allergy/AdvReac Type Severity Reaction Status Date / Time No Known Allergies Allergy Verified 12/15/24 11:37 Physical Exam Vitals: Vital Signs Temp Pulse Resp BP Pulse Ox 12/15/24 00:19 115 H 18 88/65 97 12/14/24 23:48 118 H 20 128/94 94 L 12/14/24 21:17 100.9 F H 131 H 22 115/85 94 L Intake and Output 12/14/24 12/14/24 12/15/24 14:59 22:59 06:59 Other: Weight 81.647 kg GENERAL EXAM: Alert, 59-year-old female on 2 L/min nasal cannula, comfortable in no apparent distress. Tachycardic 120 bpm, normotensive. IV Heparin currently being started HEAD: Normocephalic and atraumatic EYES: Normal reaction of pupils, equal size. NOSE: Clear with pink turbinates. THROAT: No erythema or exudates. NECK: No masses, no JVD. CHEST: No chest wall deformity. Radiation burn right chest. pink, healing well LUNGS: Equal air entry with no crackles, wheeze, rhonchi or dullness. No conversational dyspnea or accessory muscle use.. CVS: S1 and S2 normal with no audible murmur, regular rhythm. No extra heart sounds ABDOMEN: No hepatosplenomegaly, active bowel sounds, no guarding or rigidity. SPINE: No scoliosis or deformity SKIN: No rashes CENTRAL NERVOUS SYSTEM: No focal deficits, tone is normal in all 4 extremities. EXTREMITIES: There is no peripheral edema, clubbing, or cyanosis. Peripheral pulses are intact. Results - Laboratory Findings CBC and BMP: 12/15/24 06:43 12/15/24 06:43 PT/INR, D-dimer PT 11.3 sec (10.0-12.5) 12/14/24 21:38 INR 1.0 (<1.2) 12/14/24 21:38 D-Dimer 11.79 mg/L FEU (<0.60) H 12/14/24 21:38 Abnormal lab findings: Abnormal Labs 12/14/24 12/14/24 12/14/24 21:38 21:38 21:38 RBC 3.51 L Hgb 10.7 L D Hct 31.8 L MPV 9.0 L Immature Gran # 0.05 H Lymphocytes # 0.89 L Eosinophils # 0.01 L D-Dimer 11.79 H Sodium 132 L Glucose 137 H Alkaline Phosphatase 148 H Troponin I 12/14/24 21:38 RBC Hgb Hct MPV Immature Gran # Lymphocytes # Eosinophils # D-Dimer Sodium Glucose Alkaline Phosphatase Troponin I 0.042 H* - Diagnostic Findings Chest x-ray: image reviewed CT scan - chest: image reviewed Assessment and Plan Assessment: Saddle pulmonary embolism, with CT evidence of possible right-sided heart stra in, submassive; chest CT angiogram which was positive for saddle pulmonary embolism with multiple bilateral segmental and subsegmental pulmonary emboli. Flattening of the interventricular septum concerning for early right-sided heart strain. No significant reflux into the IVC or dilation of the main pulmonary artery. Acute dyspnea, secondary to above Squamous cell carcinoma of the lung, status post chemo/radiation. 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 Follow-up PET showing areas of uptake within the right supraclavicular region as well as the mediastinum. patient has just recently completed 6 weeks of radiation and 7 weeks of chemotherapy with CarboTaxol. She follows with oncologist out of the [facility] Groundglass opacity; chest CT showing improvement in patient's right bulky mass with increased aeration. There was developing groundglass opacities within the right lower lobe and lingula. Differential including radiation pneumonitis, infectious process, or possible pulmonary infarcts suggested by radiologist Chronic hypoxemic respiratory failure, currently on 2 L/min nasal cannula which she wears at home Febrile Sinus tachycardia Hyponatremia, consider SIADH History of hypertension History of hyperlipidemia Former tobacco smoker, quit prior to September 2024 Plan: Patient's medications, labs, imaging reviewed Questional CT evidence of right-sided heart strain Follow-up transthoracic echocardiogram ordered Continues to be on IV heparin per protocol Vascular surgery on-call May be candidate for EKOS for possible suction thrombectomy Monitor APTT per protocol Monitor blood pressures Give 1 L fluid bolus Oxygen requirements are stable, patient wears 2 L/min nasal cannula at home Previously started on empiric antibiotics in the ED, check procalcitonin Case discussed with my supervising physician Dr. Porter over the phone, no further recommendations at this time Patient is going to be admitted to the cardiac stepdown unit as long as she remains hemodynamically stable and does not have any significant increase in her oxygen demands We will continue to follow, additional recommendations forthcoming. I have personally seen and examined the patient, performed the documentation and the assessment and plan as written. Number of minutes spent on the visit:20 This is a joint evaluation that was done along with the nurse practitioner. This patient is hospitalized with bilateral DVT and pulmonary embolism. The patient is known to have squamous of carcinoma of the lung and the patient is currently completed Combination of chemoradiation therapy. Diagnosed with recent back in September 2024. She presented to hospital because of chest pain and shortness of breath and the patient was found to have bilateral lower extremity DVT and the patient had an occlusive DVT in the right popliteal and near complete occlusive DVT in the left posterior tibial vein. CT of the chest also reviewed and the patient has evidence of bilateral pulmonary embolism and the patient has a saddle pulmonary bolus and with multiple bilateral segmental and subsegmental PEs and flattening of the right septum indicating of right heart strain. The troponins were mildly elevated and the proBNP level was 725. Echocardiogram was also completed and the patient was found to have a preserved LV function with an ejection fraction of 55 to 60%. No obvious segmental wall motion abnormalities. The patient's RV systolic pressure was within normal limits. There was evidence of RV dilatation. The patient remains on IV heparin. Hemodynamically stable. Has mild sinus tachycardia. She is currently on 3 Suboxone by nasal cannula with a pulse ox of 96%. The patient will be seen by vascular surgery and consideration for clot thrombectomy for submassive pulmonary embolism. The patient remains on anticoagulation for now. Echocardiogram was noted. On a separate note, there has been positive response with chemoradiation therapy regarding her non-small cell lung cancer. Will continue to follow. CAT scan of the abdomen and pelvis showed no acute abdominal/pelvic process. This evaluation was done in 35 minutes. Time with Patient: Greater than 30
[2024-12-15] MEDS: SODIUM CHLORIDE 0.9% 1,000 ML IV ONE (06:31)
[2024-12-15 07:17] LABS: Basophils # (A) 0.03 10*3/uL (0.00-0.10); Basophils % (A) 0.5 %; Eosinophils # (A) 0.00 10*3/uL (0.04-0.35); Eosinophils % (A) 0.0 %; HCT 30.3 % (37.2-46.3); HGB 9.9 g/dL (12.0-15.0); Lymphocytes # (A) 0.69 10*3/uL (0.90-5.00); Lymphocytes % (A) 11.3 %; MCH 30.3 pg (27.0-32.0); MCHC 32.7 g/dL (32.0-37.0); MCV 92.7 fL (80.0-97.0); Monocytes # (A) 0.71 10*3/uL (0.20-1.00); Monocytes % (A) 11.6 %; Neutrophils # (A) 4.63 10*3/uL (1.80-7.70); Neutrophils % (A) 75.9 %; Platelet Count 147 10*3/uL (140-440); RBC 3.27 10*6/uL (4.10-5.20); RDW 18.6 % (11.5-14.5); WBC 6.10 10*3/uL (4.50-10.00)
[2024-12-15 07:21] LABS: ALT 14 U/L (4-34); AST 20 U/L (14-36); African American GFR (CKD) >90 (>60 ml/min/1.73 sqM); Albumin 2.9 g/dL (3.5-5.0); Alkaline Phosphatase 120 U/L (38-126); Anion Gap 5 mmol/L; Blood Urea Nitrogen 9 mg/dL (7-17); Calcium 8.9 mg/dL (8.4-10.2); Carbon Dioxide 22 mmol/L (22-30); Chloride 106 mmol/L (98-107); Glucose 111 mg/dL (74-99); Non-African American GFR(CKD) >90 (>60 ml/min/1.73 sqM); Potassium 4.1 mmol/L (3.5-5.1); Sodium 133 mmol/L (137-145); Total Protein 5.6 g/dL (6.3-8.2)
--- NOTE | 2024-12-15 09:13 | P.GSCN ---
History of Present Illness Consult date: 12/15/24 Reason for Consult: EKOS Requesting physician: Bradley Norton History of present illness: This a pleasant 5-year-old female who presented to the emergency department yesterday evening with complaints of shortness of breath and tachycardia. She has recent diagnosis of non-small cell lung cancer in September of this year and has undergone radiation and chemotherapy which completed 2 weeks ago. Past medical history also includes hypertension, diabetes mellitus, smoker, and coronary artery disease. Labs showed elevated D-dimer. She had chest CT angiogram with evidence of saddle pulmonary embolism with concerns for early right heart strain. Patient had elevated troponins x 3. She has been tachycardic, she is o n 3 L of nasal cannula oxygen saturation 94 to 96%. She states she still feels a bit winded and short of breath when she is tachycardic. Vascular surgery was consulted for saddle pulmonary embolism. Patient was also noted to have bilateral lower extremity DVTs on venous duplex. She denies any pain in her lower extremities and has not noticed any swelling. Review of Systems A 14 point review systems was completed all pertinent positives and negatives as stated in the HPI. Past Medical History Past Medical History: Coronary Artery Disease (CAD), Hyperlipidemia, Hypertension Additional Past Medical History / Comment(s): "borderline polycythemia", Rt. lung abnormalities on CXR and CT scan History of Any Multi-Drug Resistant Organisms: None Reported Additional Past Surgical History / Comment(s): cervical conization, colonoscopy Past Anesthesia/Blood Transfusion Reactions: Postoperative Nausea & Vomiting (PONV) Past Psychological History: No Psychological Hx Reported Smoking Status: Current every day smoker Past Alcohol Use History: Rare Past Drug Use History: Marijuana - Past Family History Daughter(s) Family Medical History: Diabetes Mellitus Brother(s) Family Medical History: Diabetes Mellitus Mother Additional Family Medical History / Comment(s): colitis Medications and Allergies Home Medications Medication Instructions Recorded Confirmed Type Aspirin [Adult Low Dose Aspirin EC] 81 mg PO DAILY 09/19/24 12/15/24 History Atorvastatin [Lipitor] 40 mg PO HS 09/19/24 12/15/24 History Fluconazole [Diflucan] 100 mg PO DAILY 12/15/24 12/15/24 History Hydrocodone/Acetaminophen 10 ml PO Q8H PRN 12/15/24 12/15/24 History [Hydrocodone/Acetaminophen 7.5-325/15 ML] Magic Mouth Wash 10 ml PO 5XD 12/15/24 12/15/24 History Sucralfate [Carafate] 1 gm PO QID 12/15/24 12/15/24 History guaiFENesin SYRUP 100MG/5ML 200 mg PO Q4H PRN 12/15/24 12/15/24 History [Robitussin] Allergies Allergy/AdvReac Type Severity Reaction Status Date / Time No Known Allergies Allergy Verified 12/15/24 11:37 Surgical - Exam Vital Signs Temp Pulse Resp BP Pulse Ox 100.9 F H 131 H 22 115/85 94 L 12/14/24 21:17 12/14/24 21:17 12/14/24 21:17 12/14/24 21:17 12/14/24 21:17 General appearance: The patient is alert, oriented, appears in no acute distress. HET: Head is normocephalic and atraumatic. Pupils are equal and reactive. Neck: Supple. Heart: Regular. Lungs: Equal expansion, normal respiratory effort. Abdomen: Soft, nontender, nondistended. Extremities: Normal skin color and turgor. No lower extremity edema. Palpable DP pulses bilaterally. Neurological: No focal deficits. Strength and sensation are grossly intact. Results - Labs 12/15/24 06:43 12/15/24 06:43 Abnormal Lab Results - Last 24 Hours (Table) 12/14/24 12/14/24 12/14/24 Range/Units 21:38 21:38 21:38 RBC 3.51 L (4.10-5.20) 10*6/uL Hgb 10.7 L D (12.0-15.0) g/dL Hct 31.8 L (37.2-46.3) % MPV 9.0 L (9.5-12.2) fL Immature Gran # 0.05 H (0.00-0.04) 10*3/uL Lymphocytes # 0.89 L (0.90-5.00) 10*3/uL Eosinophils # 0.01 L (0.04-0.35) 10*3/uL D-Dimer 11.79 H (<0.60) mg/L FEU Sodium 132 L (137-145) mmol/L Glucose 137 H (74-99) mg/dL Alkaline Phosphatase 148 H (38-126) U/L Troponin I (0.000-0.034) ng/mL 12/14/24 12/15/24 12/15/24 Range/Units 21:38 00:35 03:24 RBC (4.10-5.20) 10*6/uL Hgb (12.0-15.0) g/dL Hct (37.2-46.3) % MPV (9.5-12.2) fL Immature Gran # (0.00-0.04) 10*3/uL Lymphocytes # (0.90-5.00) 10*3/uL Eosinophils # (0.04-0.35) 10*3/uL D-Dimer (<0.60) mg/L FEU Sodium (137-145) mmol/L Glucose (74-99) mg/dL Alkaline Phosphatase (38-126) U/L Troponin I 0.042 H* 0.068 H* 0.071 H* (0.000-0.034) ng/mL Diabetes panel 12/14/24 Range/Units 21:38 Sodium 132 L (137-145) mmol/L Potassium 4.2 (3.5-5.1) mmol/L Chloride 100 (98-107) mmol/L Carbon Dioxide 23 (22-30) mmol/L BUN 11 (7-17) mg/dL Creatinine 0.54 (0.52-1.04) mg/dL Glucose 137 H (74-99) mg/dL Calcium 9.6 (8.4-10.2) mg/dL AST 21 (14-36) U/L ALT 17 (4-34) U/L Alkaline Phosphatase 148 H (38-126) U/L Total Protein 6.3 (6.3-8.2) g/dL Albumin 3.5 (3.5-5.0) g/dL Calcium panel 12/14/24 Range/Units 21:38 Calcium 9.6 (8.4-10.2) mg/dL Albumin 3.5 (3.5-5.0) g/dL Pituitary panel 12/14/24 Range/Units 21:38 Sodium 132 L (137-145) mmol/L Potassium 4.2 (3.5-5.1) mmol/L Chloride 100 (98-107) mmol/L Carbon Dioxide 23 (22-30) mmol/L BUN 11 (7-17) mg/dL Creatinine 0.54 (0.52-1.04) mg/dL Glucose 137 H (74-99) mg/dL Calcium 9.6 (8.4-10.2) mg/dL Adrenal panel 12/14/24 Range/Units 21:38 Sodium 132 L (137-145) mmol/L Potassium 4.2 (3.5-5.1) mmol/L Chloride 100 (98-107) mmol/L Carbon Dioxide 23 (22-30) mmol/L BUN 11 (7-17) mg/dL Creatinine 0.54 (0.52-1.04) mg/dL Glucose 137 H (74-99) mg/dL Calcium 9.6 (8.4-10.2) mg/dL Total Bilirubin 0.7 (0.2-1.3) mg/dL AST 21 (14-36) U/L ALT 17 (4-34) U/L Alkaline Phosphatase 148 H (38-126) U/L Total Protein 6.3 (6.3-8.2) g/dL Albumin 3.5 (3.5-5.0) g/dL - Imaging Comments: CT angiogram chest reports saddle pulmonary embolism with multiple bilateral segmental and subsegmental pulmonary emboli. There is findings concerning for early right heart strain with flattening of the interventricular septum. However there is no significant reflux into the IVC or dilation of the main pulmonary artery. Improved aeration of the right middle and lower lobes from prior CT however there are some developing peripheral groundglass opacities within the right lower lobe and lingula concerning for possible developing pulmonary infarcts in the setting of #1. Other etiologies include infectious/inflammatory process versus posttreatment changes. Overall improved appearance of right perihilar lung malignancy and right upper clavicular/medi astinal adenopathy from prior exam. Suspected postobstructive right upper lobe atelectasis. Venous duplex 1. Occlusive deep vein thrombosis of the right popliteal, posterior tibial and peroneal veins. 2 nearly completely occlusive deep venous thrombosis of the left posterior tibial vein. Incidentally 1.9 x 0.9 x 1.7 cm left popliteal fossa cyst Assessment and Plan Assessment: 1. Saddle pulmonary embolism 2. Bilateral lower extremity deep vein thrombosis 3. Non-small cell lung cancer 4. Elevated troponins Plan: 1. Continue heparin drip as ordered 2. Echocardiogram ordered, awaiting results 3. Keep n.p.o. for now 4. Further recommendations forthcoming from vascular surgeon Thank you for this consultation, we will continue to follow. The impression and plan of care has been dictated as directed. Dr. Claudio I performed a history and examination of this patient, discussed the same with the dictator. I agree with the dictator's note ,documented as a scribe. Any additional findings or plans will be noted.
--- NOTE | 2024-12-15 11:16 | P.CRDCN ---
History of Present Illness History of present illness: HISTORY OF PRESENT ILLNESS: This is a 59-year-old female with a past medical history significant for hypertension, hyperlipidemia, and lung cancer. Patient does not follow with a tonsorial artist. We have been asked to see the patient in consultation for pulmonary embolism. Patient examined at the bedside. Patient states she has been noticing her heart rate has been elevated since Wednesday. She states that it will be in the 120s at rest and then when she sits up or does minimal walking it will go into the [id number]. She reports chronic chest heaviness from her lung cancer. She denies any known history of CAD. She also reports mild shortness of breath. Patient presented to the emergency room was found to have pulmonary emboli. She was started on IV heparin. REVIEW OF SYSTEMS: At the time of my exam: CONSTITUTIONAL: Denies fever or chills. HEENT: Denies blurred vision, vision changes, or eye pain. Denies hemoptysis CARDIOVASCULAR: Denies chest pain. Denies orthopnea. Denies PND. Denies palpitations RESPIRATORY: Reports shortness of breath. GASTROINTESTINAL: Denies abdominal pain. Denies nausea or vomiting. HEMATOLOGIC: Denies bleeding disorders. GENITOURINARY: Denies any blood in urine. SKIN: Denies pruitis. Denies rash. PHYSICAL EXAM: VITAL SIGNS: Reviewed. GENERAL: Well-developed in no acute distress. HEENT: Head is normocephalic. Pupils are equal, round. Sclerae anicteric. Mucous membranes of the mouth are moist. Neck supple. No JVD or thyromegaly LUNGS: Respirations even and unlabored. Lungs essentially clear to auscultation bilaterally. HEART: Tachycardic. Regular rate and rhythm. S1 and S2 heard. ABDOMEN: Soft. Nondistended. Nontender. EXTREMITIES: Normal range of motion. No clubbing or cyanosis. Peripheral pulses intact. No lower extremity edema NEUROLOGIC: Awake and alert. Oriented x 3. ASSESSMENT: Saddle pulmonary embolism Squamous cell carcinoma of the lung, s/p chemoradiation, diagnosed in September 2024 Bilateral lower extremity DVT Elevated troponins, secondary to type II [place] secondary to oxygen supply/demand mismatch secondary to pulmonary embolism Chronic hypoxic respiratory failure on home oxygen Hypertension Hyperlipidemia Former nicotine dependence PLAN: Continue anticoagulation with IV heparin Add aspirin 81 mg daily Patient follows with a freight and passenger agent out of [place]. However would like input from oncology services here regarding anticoagulation. Consultation placed to Dr. Wall Vascular surgery following for possible EKOS 2D echo ordered. Await results. Further recommendations pending patient course Nurse practitioner note has been reviewed by physician. Signing provider agrees with the documented findings, assessment, and plan of care documented by AUT[employer] INS[employer]ANCE CLAIM EXAMINER as a scribe. Past Medical History Past Medical History: Coronary Artery Disease (CAD), Hyperlipidemia, Hyp ertension Additional Past Medical History / Comment(s): "borderline polycythemia", Rt. lung abnormalities on CXR and CT scan History of Any Multi-Drug Resistant Organisms: None Reported Additional Past Surgical History / Comment(s): cervical conization, colonoscopy Past Anesthesia/Blood Transfusion Reactions: Postoperative Nausea & Vomiting (PONV) Past Psychological History: No Psychological Hx Reported Smoking Status: Current every day smoker Past Alcohol Use History: Rare Past Drug Use History: Marijuana - Past Family History Daughter(s) Family Medical History: Diabetes Mellitus Brother(s) Family Medical History: Diabetes Mellitus Mother Additional Family Medical History / Comment(s): colitis Medications and Allergies Home Medications Medication Instructions Recorded Confirmed Type Aspirin [Adult Low Dose Aspirin EC] 81 mg PO DAILY 09/19/24 09/21/24 History Atorvastatin [Lipitor] 40 mg PO HS 09/19/24 09/21/24 History Chlorthalidone 25 mg PO DAILY 09/19/24 09/21/24 History Ergocalciferol [Vitamin D2 (1250 1 tab PO Q30D 09/19/24 09/21/24 History Mcg = [id number] Iu)] Losartan [Cozaar] 100 mg PO HS 09/19/24 09/21/24 History amLODIPine [Norvasc] 10 mg PO DAILY 09/19/24 09/21/24 History Allergies Allergy/AdvReac Type Severity Reaction Status Date / Time No Known Allergies Allergy Verified 12/14/24 21:21 Physical Exam Vitals: Vital Signs Temp Pulse Pulse Resp BP BP Pulse Ox 12/15/24 08:00 100 F H 114 H 16 93/60 94 L 12/15/24 06:05 98.7 F 121 H 20 110/77 94 L 12/15/24 05:30 99.3 F 122 H 20 107/76 94 L 12/15/24 05:00 113 H 98/72 95 12/15/24 04:00 112 H 99/68 96 12/15/24 03:00 111 H 92/59 94 L 12/15/24 02:00 113 H 91/63 96 12/15/24 01:00 112 H 18 105/78 94 L 12/15/24 00:19 115 H 18 88/65 97 12/14/24 23:48 118 H 20 128/94 94 L 12/14/24 21:17 100.9 F H 131 H 22 115/85 94 L Intake and Output 12/14/24 12/15/24 12/15/24 22:59 06:59 14:59 Other: Voiding Method Bedpan Weight 81.647 kg 75.5 kg Results 12/15/24 06:43 12/15/24 06:43 Cardiac Enzymes 12/14/24 12/14/24 12/15/24 Range/Units 21:38 21:38 00:35 AST 21 (14-36) U/L Troponin I 0.042 H* 0.068 H* (0.000-0.034) ng/mL 12/15/24 12/15/24 Range/Units 03:24 06:43 AST 20 (14-36) U/L Troponin I 0.071 H* (0.000-0.034) ng/mL Coagulation 12/14/24 12/15/24 Range/Units 21:38 06:43 PT 11.3 (10.0-12.5) sec APTT 23.1 44.4 H (22.0-30.0) sec CBC 12/14/24 12/15/24 Range/Units 21:38 06:43 WBC 6.95 6.10 (4.50-10.00) 10*3/uL RBC 3.51 L 3.27 L (4.10-5.20) 10*6/uL Hgb 10.7 L D 9.9 L (12.0-15.0) g/dL Hct 31.8 L 30.3 L (37.2-46.3) % Plt Count 178 147 (140-440) 10*3/uL Comprehensive Metabolic Panel 12/14/24 12/15/24 Range/Units 21:38 06:43 Sodium 132 L 133 L (137-145) mmol/L Potassium 4.2 4.1 (3.5-5.1) mmol/L Chloride 100 106 (98-107) mmol/L Carbon Dioxide 23 22 (22-30) mmol/L BUN 11 9 (7-17) mg/dL Creatinine 0.54 0.57 (0.52-1.04) mg/dL Glucose 137 H 111 H (74-99) mg/dL Calcium 9.6 8.9 (8.4-10.2) mg/dL AST 21 20 (14-36) U/L ALT 17 14 (4-34) U/L Alkaline Phosphatase 148 H 120 (38-126) U/L Total Protein 6.3 5.6 L (6.3-8.2) g/dL Albumin 3.5 2.9 L (3.5-5.0) g/dL Current Medications Generic Name Dose Route Start Last Admin Trade Name Freq PRN Reason Stop Dose Admin Heparin Sodium (Porcine) 0 unit 12/14/24 23:00 Heparin Sodium 1,000 Un/Ml (10ml Vl) IV PER PROTOCOL PRN Low PTT Protocol Heparin Sodium/Sodium Chloride 250 mls @ 14.696 mls/hr 12/14/24 23:00 12/14/24 23:27 25,000 unit/ Sodium Chloride IV 18 units/kg/hr .Q17H1M [facility] 14.696 mls/hr Administration Protocol 18 UNITS/KG/HR Cefepime HCl 2 gm/ Sodium 100 mls @ 25 mls/hr 12/15/24 00:00 12/15/24 08:25 Chloride IVPB 25 mls/hr Q8HR [facility] Administration Protocol Sodium Chloride 1,000 mls @ 100 mls/hr 12/15/24 02:30 12/15/24 02:44 Saline 0.9% IV 100 mls/hr .Q10H [facility] Administration Vancomycin HCl 1,500 mg/ 500 mls @ 167 mls/hr 12/15/24 12:00 Sodium Chloride IVPB Q12H [facility] Naloxone HCl 0.2 mg 12/14/24 23:18 Naloxone 0.4 Mg/Ml 1 Ml Vial IV Q2M PRN Opioid Reversal Ondansetron HCl 4 mg 12/14/24 23:20 Ondansetron 4 Mg/2 Ml Vial IVP Q8HR PRN Nausea And Vomiting Intake and Output 12/14/24 12/15/24 12/15/24 22:59 06:59 14:59 Other: Voiding Method Bedpan Weight 81.647 kg 75.5 kg 12/15/24 06:43 12/15/24 06:43
[2024-12-15] MEDS: ASPIRIN 81 MG PO SCH (12:17)
[2024-12-15] MEDS: VANCOMYCIN 1,500 MG in SODIUM CHLORIDE 0.9% 500 ML 500 ML IVPB SCH (12:21)
--- NOTE | 2024-12-15 15:28 | CA ---
Transthoracic Echo Report Name: Xochitl Hay Age: 59 Gender: F : 1965 Exam Date: 12/15/2024 10:03 Exam Location: [facility] Ht (in): 67 Wt (lb): 180 Ordering Physician: Bradley Norton MD Attending/Referring Phys: Glass Curvature Gauger Sarahi Trejo RDCS Procedure CPT: Indications: Saddle PE, eval for right heart strain Cardiac Hx: Technical Quality: Fair Contrast 1: Total Dose (mL): Contrast 2: Total Dose (mL): MEASUREMENTS (Male / Female) Normal Values 2D ECHO LV Diastolic Diameter PLAX 4.3 cm 4.2 - 5.9 / 3.9 - 5.3 cm LV Systolic Diameter PLAX 2.8 cm IVS Diastolic Thickness 1.1 cm 0.6 - 1.0 / 0.6 - 0.9 cm LVPW Diastolic Thickness 1.0 cm 0.6 - 1.0 / 0.6 - 0.9 cm LV Relative Wall Thickness 0.5 RV Internal Dim ED PLAX 4.2 cm LVOT Diameter 1.7 cm LA Systolic Diameter LX 3.4 cm 3.0 - 4.0 / 2.7 - 3.8 cm LA Volume 26.3 cm??? 18 - 58 / 22 - 52 cm??? LA Volume Index 13.2 cm???/m??? 16 - 28 cm???/m??? DOPPLER TR Peak Velocity 244.7 cm/s TR Peak Gradient 23.9 mmHg Right Atrial Pressure 5.0 mmHg Pulmonary Artery Systolic Pressu 28.9 mmHg Right Ventricular Systolic Press 28.9 mmHg FINDINGS Left Ventricle Left ventricular ejection fraction is estimated at 55-60%. Mild concentric left ventricular hypertrophy. No obvious regional wall motion abnormalities. Left ventricular cavity size normal. Right Ventricle Right ventricular dilatation. Right ventricular systolic pressure within normal limits. Right Atrium Normal right atrial size. Left Atrium Normal left atrial size. Mitral Valve Mitral valve thickened. No mitral stenosis. Trace mitral regurgitation. Aortic Valve Trileaflet aortic valve. No aortic valve stenosis or regurgitation. Tricuspid Valve Structurally normal tricuspid valve. No tricuspid stenosis. Trace tricuspid regurgitation. Pulmonic Valve Structurally normal pulmonic valve. No pulmonic stenosis. Trace pulmonic regurgitation. Pericardium Minimal pericardial effusion (normal variant). Aorta Aortic annulus normal. Moderately dilated proximal ascending aorta (tube). CONCLUSIONS LVEF 55% Mild concentric LVH No obvious regional wall motion abnormality RV dilatation noticed with hypokinetic base and hyperdynamic apex suggestive of Huitron sign. RVSP estimated at 30 mmHg No significant valvular dysfunction appreciated No pericardial effusion Previewed by: Dr Denzel Allison (Electronically Signed) Final Date: 15 December 2024 15:28
--- NOTE | 2024-12-15 20:08 | P.CONS ---
History of Present Illness - Reason for Consult Consult date: 12/15/24 lung cancer Requesting physician: Gabriella Tomas - Chief Complaint SOB - History of Present Illness Patient is a 59-year-old female with a significant history of squamous cell carcinoma of the lung. Patient follows with Dr. Gordillo at [facility]. Patient has completed 7 cycles of weekly Carbo/Taxol with concurrent RT. Completing treatment 2 weeks ago. Patient reports he has been having progressive shortness of breath over the last 1 week, which caused her to present for further evaluation. CTA chest showing saddle pulmonary embolism with multiple bilateral segmental and subsegmental pulmonary emboli. Concerning for early right heart strain. Overall improved appearance of the right perihilar lung malignancy and right supraclavicular and mediastinal adenopathy from prior exam. Patient has been started on heparin drip. Echocardiogram has been ordered and pending. Bilateral lower extremity Dopplers positive for occlusive deep vein thrombosis of the right popliteal and posterior tibial and peroneal veins. Nearly completely occlusive deep venous thrombosis of the left posterior tibial vein. Patient also was noted to have a temperature of 100.9. Empiric vancomycin and cefepime has been ordered. Blood cultures pending. WBC 6.1, hemoglobin 9.9, platelets 147,000. Viral panel negative. Review of Systems 10 point ROS is negative except as stated in the HPI Past Medical History Past Medical History: Coronary Artery Disease (CAD), Hyperlipidemia, Hypertension Additional Past Medical History / Comment(s): "borderline polycythemia", Rt. tosin ng abnormalities on CXR and CT scan History of Any Multi-Drug Resistant Organisms: None Reported Additional Past Surgical History / Comment(s): cervical conization, colonoscopy Past Anesthesia/Blood Transfusion Reactions: Postoperative Nausea & Vomiting (PONV) Past Psychological History: No Psychological Hx Reported Smoking Status: Current every day smoker Past Alcohol Use History: Rare Past Drug Use History: Marijuana - Past Family History Daughter(s) Family Medical History: Diabetes Mellitus Brother(s) Family Medical History: Diabetes Mellitus Mother Additional Family Medical History / Comment(s): colitis Medications and Allergies Home Medications Medication Instructions Recorded Confirmed Type Aspirin [Adult Low Dose Aspirin EC] 81 mg PO DAILY 09/19/24 12/15/24 History Atorvastatin [Lipitor] 40 mg PO HS 09/19/24 12/15/24 History Fluconazole [Diflucan] 100 mg PO DAILY 12/15/24 12/15/24 History Hydrocodone/Acetaminophen 10 ml PO Q8H PRN 12/15/24 12/15/24 History [Hydrocodone/Acetaminophen 7.5-325/15 ML] Magic Mouth Wash 10 ml PO 5XD 12/15/24 12/15/24 History Sucralfate [Carafate] 1 gm PO QID 12/15/24 12/15/24 History guaiFENesin SYRUP 100MG/5ML 200 mg PO Q4H PRN 12/15/24 12/15/24 History [Robitussin] Allergies Allergy/AdvReac Type Severity Reaction Status Date / Time No Known Allergies Allergy Verified 12/15/24 11:37 Physical Exam Vitals: Vital Signs Temp Pulse Pulse Resp BP BP Pulse Ox 12/15/24 08:00 100 F H 114 H 16 93/60 94 L 12/15/24 06:05 98.7 F 121 H 20 110/77 94 L 12/15/24 05:30 99.3 F 122 H 20 107/76 94 L 12/15/24 05:00 113 H 98/72 95 12/15/24 04:00 112 H 99/68 96 12/15/24 03:00 111 H 92/59 94 L 12/15/24 02:00 113 H 91/63 96 12/15/24 01:00 112 H 18 105/78 94 L 12/15/24 00:19 115 H 18 88/65 97 12/14/24 23:48 118 H 20 128/94 94 L 12/14/24 21:17 100.9 F H 131 H 22 115/85 94 L Intake and Output 12/14/24 12/15/24 12/15/24 22:59 06:59 14:59 Other: Voiding Method Bedpan Weight 81.647 kg 75.5 kg - Constitutional General appearance: average body habitus, no acute distress - EENT Eyes: anicteric sclerae - Respiratory breathing is even and unlabored - Cardiovascular skin warm and dry - Gastrointestinal General gastrointestinal: soft, no tenderness - Psychiatric Psychiatric: A&O x's 3 Results CBC & Chem 7: 12/15/24 06:43 12/15/24 06:43 Labs: Abnormal Lab Results - Last 24 Hours (Table) 12/14/24 12/14/24 12/14/24 Range/Units 21:38 21:38 21:38 RBC 3.51 L (4.10-5.20) 10*6/uL Hgb 10.7 L D (12.0-15.0) g/dL Hct 31.8 L (37.2-46.3) % MPV 9.0 L (9.5-12.2) fL Immature Gran # 0.05 H (0.00-0.04) 10*3/uL Lymphocytes # 0.89 L (0.90-5.00) 10*3/uL Eosinophils # 0.01 L (0.04-0.35) 10*3/uL APTT (22.0-30.0) sec D-Dimer 11.79 H (<0.60) mg/L FEU Sodium 132 L (137-145) mmol/L Glucose 137 H (74-99) mg/dL Alkaline Phosphatase 148 H (38-126) U/L Troponin I (0.000-0.034) ng/mL Total Protein (6.3-8.2) g/dL Albumin (3.5-5.0) g/dL 12/14/24 12/15/24 12/15/24 Range/Units 21:38 00:35 03:24 RBC (4.10-5.20) 10*6/uL Hgb (12.0-15.0) g/dL Hct (37.2-46.3) % MPV (9.5-12.2) fL Immature Gran # (0.00-0.04) 10*3/uL Lymphocytes # (0.90-5.00) 10*3/uL Eosinophils # (0.04-0.35) 10*3/uL APTT (22.0-30.0) sec D-Dimer (<0.60) mg/L FEU Sodium (137-145) mmol/L Glucose (74-99) mg/dL Alkaline Phosphatase (38-126) U/L Troponin I 0.042 H* 0.068 H* 0.071 H* (0.000-0.034) ng/mL Total Protein (6.3-8.2) g/dL Albumin (3.5-5.0) g/dL 12/15/24 12/15/24 12/15/24 Range/Units 06:43 06:43 06:43 RBC 3.27 L (4.10-5.20) 10*6/uL Hgb 9.9 L (12.0-15.0) g/dL Hct 30.3 L (37.2-46.3) % MPV 9.0 L (9.5-12.2) fL Immature Gran # (0.00-0.04) 10*3/uL Lymphocytes # 0.69 L (0.90-5.00) 10*3/uL Eosinophils # 0.00 L (0.04-0.35) 10*3/uL APTT 44.4 H (22.0-30.0) sec D-Dimer (<0.60) mg/L FEU Sodium 133 L (137-145) mmol/L Glucose 111 H (74-99) mg/dL Alkaline Phosphatase (38-126) U/L Troponin I (0.000-0.034) ng/mL Total Protein 5.6 L (6.3-8.2) g/dL Albumin 2.9 L (3.5-5.0) g/dL CT scan - chest: report reviewed Venous US: report reviewed Assessment and Plan (1) DVT (deep venous thrombosis) Current Visit: Yes Status: Acute Code(s): I82.409 - ACUTE EMBOLISM AND THOMBOS UNSP DEEP VN UNSP LOWER EXTREMITY SNOMED Code(s): 923902714 (2) Pneumonia Current Visit: Yes Status: Acute Code(s): J18.9 - PNEUMONIA, UNSPECIFIED ORGANISM SNOMED Code(s): 149338619 (3) Pulmonary embolism Current Visit: Yes Status: Acute Code(s): I26.99 - OTHER PULMONARY EMBOLISM WITHOUT ACUTE COR PULMONALE SNOMED Code(s): 42933109 (4) Lung cancer Current Visit: Yes Status: Acute Code(s): C34.90 - MALIGNANT NEOPLASM OF UNSP PART OF UNSP BRONCHUS OR LUNG SNOMED Code(s): 376959272 Plan: Saddle PE, Bilateral DVTs: Reports progressive shortness of breath over the last 1 week -CTA chest showing saddle pulmonary embolism with multiple bilateral segmental and subsegmental pulmonary emboli. Concerning for early right heart strain. Overall improved appearance of the right perihilar lung malignancy and right supraclavicular and mediastinal adenopathy from prior exam. -Echocardiogram pending -Bilateral lower extremity Dopplers positive for occlusive deep vein thrombosis of the right popliteal and posterior tibial and peroneal veins. Nearly completely occlusive deep venous thrombosis of the left posterior tibial vein -Agree with Heparin drip for now. Once no further procedures/interventions planned, pt can be transitioned to DOAC. Likely provoked from malignancy. Would recommend minimum of 6 months of anticoagulation, pending status of malignancy at that time -Vascular surgery/cardiology following Lung cancer: History of squamous cell carcinoma of the lung. Patient follows with Dr. Gordillo at [facility]. Per pt, cancer is localized to lung and neck...possibly adrenal gland? -Completed 7 cycles of weekly Carbo/Taxol with concurrent RT, finishing treatment 2 weeks ago. -Treatment response scans and subsequent f/u scheduled for 01/02 -Will continue f/u and management with primary oncologist, Dr. Gordillo Doctor attests: I performed a history and physical examination of this patient, developed impression and plan of care. Discussed with dictator. I agree with dictators note, documented as a scribe.
--- NOTE | 2024-12-16 02:11 | HP ---
HISTORY AND PHYSICAL CHIEF COMPLAINT: Shortness of breath, tachycardia, and chills. HISTORY OF PRESENT ILLNESS: This 59-year-old white female is being treated for aggressive lung cancer. She was in [facility] and got out recently. She was doing fairly well following the radiation and chemotherapy and then suddenly developed tachycardia and shortness of breath. She came to the emergency room where she was found to have at least 1 (large) pulmonary embolism. REVIEW OF SYSTEMS: She denies syncope, chest pain, hemoptysis, etc. PAST MEDICAL HISTORY, FAMILY HISTORY, AND PERSONAL SOCIAL HISTORIES: Otherwise unremarkable except as related to her current problem. She has had a history of hypertension in the past. Remainder of the history is unremarkable. She was an everyday smoker. PHYSICAL EXAMINATION: VITAL SIGNS: Pulse is 130 and blood pressure is 115/85. GENERAL: She appears to be short of breath. SKIN: Color is normal. HEAD, EARS, EYES, NOSE, MOUTH, AND THROAT: Seem to be normal. NECK: Veins are not distended. CHEST: Demonstrates decreased breath sounds throughout, but breath sounds are heard bilaterally. There are no rales or rhonchi. CARDIAC: Demonstrates tachycardia. ABDOMEN: Soft, nontender. EXTREMITIES: Normal. NEUROLOGICAL: She is intact. DIAGNOSES: She is admitted to the hospital with diagnoses of: 1. Saddle pulmonary embolus. 2. Multiple pulmonary emboli. 3. Carcinoma of the lung. 4. Supraventricular tachycardia. PLAN: 1. Bedrest. 2. IV fluids. 3. Nasal O2. 4. Updrafts. 5. Consult with Cardiology and Cardiac Surgery. MMODL / IJN: [id number] /
--- NOTE | 2024-12-16 05:47 | PN ---
PROGRESS NOTE CHIEF COMPLAINT: Shortness of breath and pulmonary embolism. HISTORY OF PRESENT ILLNESS: This lady is doing fairly well, but she is short of breath. Denies chest pain. She has had no hemoptysis. PHYSICAL EXAMINATION: CHEST: Breath sounds are heard bilaterally. CARDIAC: Demonstrates tachycardia. Rate is 131. Blood pressure is 115/85. CHEST: Demonstrates no rales or rhonchi. ABDOMEN: Soft, nontender. IMPRESSION: 1. Carcinoma of the lung. 2. Supraventricular tachycardia. 3. Pulmonary embolism. PLAN: Await further recommendations from Cardiovascular Surgery and Cardiology. MMODL / IJN: [id number] /
[2024-12-16 07:50] LABS: African American GFR (CKD) >90 (>60 ml/min/1.73 sqM); Non-African American GFR(CKD) >90 (>60 ml/min/1.73 sqM)
--- NOTE | 2024-12-16 09:48 | P.PN ---
Subjective Progress Note Date: 12/16/24 This is Yoni Perry NP, I'm dictating on behalf of Dr. Forrester's H&P and A&P. Patient was interviewed and examined. Patient is a pleasant 59-year-old female who presented to the hospital with a saddle pulmonary embolism likely secondary to malignancy. We requested input from hematology oncology for DOAC administration, they report that once all procedures are completed that DOAC would be appropriate for at least 6 months. Patient reports that her breathing is okay as long as she is not moving. Echocardiogram did demonstrate some evidence of right heart strain. Patient has been on a heparin drip and tolerating this well. She has no complaints of any significant bleeding. GENERAL: Well-appearing, well-nourished and in no acute distress. NECK: Supple without JVD or thyromegaly. LUNGS: Breath sounds clear to auscultation bilaterally. Respiration equal and unlabored. No wheezes, rales or rhonchi. HEART: Regular rate and rhythm without murmurs, rubs or gallops. S1 and S2 he kapil. EXTREMITIES: Normal range of motion, no edema. No clubbing or cyanosis. Peripheral pulses intact and strong. VITALS: Temp 99.3, pulse 105, respirations 16, blood pressure 122/74, O2 saturation 94% on 3 L TELEMETRY: Sinus mechanism LABS: White count 6.1, hemoglobin 9.9, platelets 147, sodium 133, potassium 4.1, chloride 106, BUN 9, creatinine 0.52 IMPRESSION: 1. Saddle pulmonary embolism 2. Squamous cell carcinoma of the lung, status post chemoradiation, diagnosed in September 2024 3. Bilateral lower extremity DVT 4. Elevated troponins, secondary to type II NE secondary to oxygen sup ply/demand mismatch secondary to pulmonary embolism 5. Chronic hypoxic respiratory failure on home oxygen 6. Hypertension 7. Hyperlipidemia 8. Former nicotine dependence PLAN: Continue anticoagulation with IV heparin, until all procedures are completed. Patient reports she is going to see vascular surgery around 11 AM today. Once cleared by vascular surgery, patient may start DOAC. No further recommendations from a cardiology standpoint. Thank you for allowing us to participate in care of this patient. Objective - Vital Signs Vital signs: Vital Signs Temp 99.3 F 12/16/24 07:54 Pulse 105 H 12/16/24 07:54 Resp 16 12/16/24 07:54 BP 122/74 12/16/24 07:54 Pulse Ox 94 L 12/16/24 07:54 FiO2 Intake & Output 12/15/24 12/16/24 12/16/24 18:59 06:59 18:59 Intake Total 350 Output Total 200 Balance 150 Weight 75.5 kg 60 kg Intake: Intake, IV Titration 350 Amount Cefepime 2 gm In Sodium 100 Chloride 0.9% 100 ml @ 25 mls/hr IVPB Q8HR [facility] Rx# :[id number] Heparin Sod,Pork in 0.45% 250 NaCl 25,000 unit In 0.45 % NaCl 1 250ml.bag @ 18 UNITS/KG/HR 14.696 mls/hr IV .Q17H1M [facility] Rx#: [id number] Output: Urine 200 Other: Voiding Method Bedpan Bedpan Bedpan # Voids 1 1 - Labs CBC & Chem 7: 12/15/24 06:43 12/16/24 06:37 Labs: Abnormal Lab Results - Last 24 Hours (Table) 12/16/24 Range/Units 06:37 APTT 46.0 H (22.0-30.0) sec Microbiology - Last 24 Hours (Table) 12/14/24 23:10 Blood Culture - Preliminary Blood
[2024-12-16] MEDS: MIDAZOLAM 2 MG/2 ML VIAL IVP ONE ×3 (12:45→13:06)
[2024-12-16] MEDS: fentaNYL (PF) 50 MCG/1 ML VIAL IVP ONE ×2 (12:45→12:52)
[2024-12-16] MEDS: LIDOCAINE 2% (PF) 20 MG/ML 5 ML VIAL SQ ONE (12:45)
[2024-12-16] MEDS: HEPARIN SODIUM 1,000 UN/ML (10ML VL) IVP ONE (13:03)
[2024-12-16] MEDS: SODIUM CHLORIDE 0.9% 1,000 ML IV ONE (13:26)
[2024-12-16] MEDS: HEPARIN SODIUM,PORCINE 10,000 UNIT in SODIUM CHLORIDE 0.9% 1,000 ML IRRIGATION ONE (13:27)
[2024-12-16] MEDS: PROTAMINE SULFATE 10 MG/ML 5 ML VIAL IV ONE (13:32)
[2024-12-16] MEDS: IOPAMIDOL-370 100ML BTL INTRATHECA ONE (13:41)
[2024-12-16] MEDS ORDERED: HYDROcodone/APAP 15 ML SOLUTION PO PRN (14:02)
--- NOTE | 2024-12-16 14:12 | P.OP ---
Date of Procedure: 12/16/24 Preoperative Diagnosis: Bilateral pulmonary embolism with evidence of right heart strain. Postoperative Diagnosis: Same. Procedure(s) Performed: 1: Ultrasound-guided cannulation right femoral vein. 2: FlowTrever suction thrombectomy bilateral pulmonary veins.. Implants: None. Anesthesia: MAC, local (1% Xylocaine), other (Moderate conscious sedation with fentanyl and Versed administered intravenously.) Surgeon: Basilio Claudio Estimated Blood Loss (ml): 200 Urine output (ml): 0 Pathology: none sent Condition: stable Disposition: no change Indications for Procedure: Patient is a 59-year-old female with a history of lung cancer who was recently completed course of both radiation and oncologic therapy for her lung cancer. She had presented with some shortness of breath to the emergency department. Venous duplex imaging demonstrated acute femoral venous thrombosis. She did undergo a CT angiogram of the pulmonary arteries which demonstrated bilateral truncal pulmonary emboli. Patient's troponins were not elevated however echocardiogram demonstrated evidence of some right heart strain. I discussed with the patient these findings and we discussed both medical and interventional therapy. Patient wished to proceed with attempt at pulmonary thrombectomy. Given her recent history of radiation therapy we felt that tPA thrombolysis would be relatively contraindicated. Is felt that suction thrombectomy would be the most appropriate approach with the understanding that a less than aggressive treatment plan would be appropriate again given the friable nature of her pulmonary tissues. The procedure, risk and benefits were discussed. All questions were answered to patient's satisfaction. Operative Findings: Most likely this clot is relatively chronic and thus little yield was achieved with thrombectomy. Description of Procedure: Patient was brought to the cardiac catheterization laboratory. Both groins were sterilely prepped draped in usual manner. Patient did receive both fentanyl and Versed administered intravenously for moderate conscious sedation purposes. Utilizing ultrasound the right common femoral vein was identified. This vein was normally patent and free of visible thrombus. 1% Xylocaine was utilized for local anesthesia of the tissues overlying the femoral vein. Through this anesthetized area with the aid of ultrasound a multipurpose needle was utilized to cannulate the vein. Once cannulated a soft tipped guidewire was advanced. The needle was withdrawn and a 6 Lao sheath was placed. A guidewire and catheter combination were utilized first to select the left pulmonary artery and the catheter was advanced over the guidewire into the main pulmonary artery. The guidewire was exchanged for an Amplatz wire and the c atheter was withdrawn. The sheath was withdrawn and a FlowTreaver 20 sheath and dilator were advanced over the guidewire. The dilator was withdrawn and the suction catheter was advanced through the sheath into the left pulmonary artery. Suction thrombectomy was performed however little thrombus was harvested. A similar procedure was performed on the contralateral side with similar minimal thrombus retrieved. It was felt that more aggressive therapy might be harmful to the patient given the anticipated relatively friable pulmonary tissues and the procedure was then halted. The sheath was withdrawn and pressure was held at the puncture site until all evidence of bleeding ceased. Patient tolerated procedure well and was returned to her room in satisfactory and stable condition. Total fluoroscopy time: 11.5 minutes. Total moderate conscious sedation time: 40 minutes.
[2024-12-16] MEDS ORDERED: MAGIC MOUTH WASH PO SCH (16:00)
--- NOTE | 2024-12-16 16:00 | P.PN ---
Subjective Progress Note Date: 12/16/24 Patient is a 59-year-old female with past medical history significant for non- small cell lung cancer diagnosed back in September,. Dr. 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 Follow-up PET showing areas of uptake within the right supraclavicular region as well as the mediastinum. She has been following with an [place]illo[place] [facility] [place] recently completed 6 weeks of radiation to the chest as well as 7 weeks of chemotherapy with CarboTaxol. Last dose of chemotherapy treatment was 2 weeks ago today. Additionally, patient has history of hyperlipidemia, hypertension. Her primary care provider is Dr. Paz. Came to the emergency department for evaluation last night. She was having shortness of breath and increased heart rate with palpitations on exertion. She thought she was dehydrated. Reports trouble/painful swallowing following radiation to her chest. Workup in the ED including a D-dimer which was elevated in setting chest CT angiogram which was positive for saddle pulmonary embolism with multiple bilateral segmental and subsegmental pulmonary emboli. Flattening of the interventricular septum concerning for early right-sided heart strain. No significant reflux into the IVC or dilation of the main pulmonary artery. Additionally, improvement in patient's right bulky mass with increased aeration. There was developing groundglass opacities within the right lower lobe and lingula. Differential including radiation pneumonitis, infectious process, inflammatory process, or possible pulmonary infarcts. Labs including a CBC with a WBC count of 6.9, hemoglobin 10.7 g/dL, platelets 178. D-dimer 11.8. CMP unremarkable, electrolytes WDL with exception of sodium 132. Glucose 137. Troponin 0.042. Viral 4 Plex negative for influenza A/B, RSV, COVID. I am seeing this patient in emergency department. Heparin is being started at the moment. She is on 2 L/min nasal cannula which she states she wears at home. S he is tachycardic with a heart rate in the 120s. Blood pressure is normotensive. There is a 1 L fluid bolus ordered. Endorses above-mentioned symptoms. She has had a nonproductive cough over the last 2 weeks. Febrile on arrival, possibility due to PE. She was placed on empiric antibiotics in the ED. She denies any chest pain, hemoptysis, lightheadedness or syncopal events. No unilateral lower extremity edema. No previous history of PE. Vascular team on- call for EKOS was notified On 12/16/2024, the patient continues to have some tachycardia with limited amount of activity. No significant shortness of breath at rest. No chest pain. No pleurisy or hemoptysis. The patient remains on IV heparin. On a separate note, the patient had an echocardiogram that showed mild pulm hypertension. Preserved LV function. Dilatation of the RV and the patient was seen by vascular surgery and based on submassive nature of the pulm embolism, the patient is to undergo a clot thrombectomy by vascular surgery. No new complaints otherwise. The white cell count is 6.1, hemoglobin 9.9, PTT is therapeutic, BUN is 9 with a creatinine 0.5. Procalcitonin level was less than 0.2. Troponins were p ositive. The patient is currently on 3 L of oxygen by nasal cannula with a pulse ox of 96%. Continues to have some mild sinus tachycardia. Objective - Vital Signs Vital signs: Vital Signs Temp 99.3 F 12/16/24 07:54 Pulse 105 H 12/16/24 07:54 Resp 16 12/16/24 07:54 BP 122/74 12/16/24 07:54 Pulse Ox 94 L 12/16/24 07:54 FiO2 Intake & Output 12/15/24 12/16/24 12/16/24 18:59 06:59 18:59 Intake Total 350 Output Total 200 Balance 150 Weight 75.5 kg 60 kg Intake: Intake, IV Titration 350 Amount Cefepime 2 gm In Sodium 100 Chloride 0.9% 100 ml @ 25 mls/hr IVPB Q8HR [facility] Rx# :[id number] Heparin Sod,Pork in 0.45% 250 NaCl 25,000 unit In 0.45 % NaCl 1 250ml.bag @ 18 UNITS/KG/HR 14.696 mls/hr IV .Q17H1M [facility] Rx#: [id number] Output: Urine 200 Other: Voiding Method Bedpan Bedpan Bedpan # Voids 1 1 - Exam GENERAL EXAM: Alert, 59-year-old female on 2 L/min nasal cannula, comfortable in no apparent distress. Tachycardic 120 bpm, normotensive. IV Heparin currently being started HEAD: Normocephalic and atraumatic EYES: Normal reaction of pupils, equal size. NOSE: Clear with pink turbinates. THROAT: No erythema or exudates. NECK: No masses, no JVD. CHEST: No chest wall deformity. Radiation burn right chest. pink, healing well LUNGS: Equal air entry with no crackles, wheeze, rhonchi or dullness. No conversational dyspnea or accessory muscle use.. CVS: S1 and S2 normal with no audible murmur, regular rhythm. No extra heart sounds ABDOMEN: No hepatosplenomegaly, active bowel sounds, no guarding or rigidity. SPINE: No scoliosis or deformity SKIN: No rashes CENTRAL NERVOUS SYSTEM: No focal deficits, tone is normal in all 4 extremities. EXTREMITIES: There is no peripheral edema, clubbing, or cyanosis. Peripheral pulses are intact. - Labs CBC & Chem 7: 12/15/24 06:43 12/16/24 06:37 Labs: Abnormal Lab Results - Last 24 Hours (Table) 12/16/24 Range/Units 06:37 APTT 46.0 H (22.0-30.0) sec Microbiology - Last 24 Hours (Table) 12/14/24 23:10 Blood Culture - Preliminary Blood Assessment and Plan Assessment: Saddle pulmonary embolism, with CT evidence of possible right-sided heart strain, submassive; chest CT angiogram which was positive for saddle pulmonary embolism with multiple bilateral segmental and subsegmental pulmonary emboli. Flattening of the interventricular septum concerning for early right-sided heart strain. No significant reflux into the IVC or dilation of the main pulmonary artery. The patient has submassive pulmonary embolism, positive troponins, sinus tachycardia still present and the patient is having exertional tachycardia and shortness of breath. Acute dyspnea, secondary to above Acute hypoxic respiratory failure, currently on 3 L by nasal cannula Squamous cell carcinoma of the lung, status post chemo/radiation. 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 Follow-up PET showing areas of uptake within the right supraclavicular region as well as the mediastinum. patient has just recently completed 6 weeks of radiation and 7 weeks of chemotherapy with CarboTaxol. She follows with oncologist out of the [facility] Groundglass opacity; chest CT showing improvement in patient's right bulky mass with increased aeration. There was developing groundglass opacities within the right lower lobe and lingula. Differential including radiation pneumonitis, infectious process, or possible pulmonary infarcts suggested by radiologist Chronic hypoxemic respiratory failure, currently on 2 L/min nasal cannula which she wears at home Febrile Sinus tachycardia Hyponatremia, recovered History of hypertension History of hyperlipidemia Former tobacco smoker, quit prior to September 2024 Plan: Keep the patient on 3 L O2 by nasal cannula Continues to be on IV heparin per protocol Monitor APTT per protocol Monitor blood pressures The patient will be having a clot thrombectomy by vascular surgery. Will continue to follow-up and monitor the patient's progress. On a separate note, there has been positive response with chemoradiation therapy regarding her non-small cell lung cancer. Will continue to follow. CAT scan of the abdomen and pelvis showed no acute abdominal/pelvic process. Time with Patient: Greater than 30
[2024-12-16] MEDS: MAG HYDROX/AL HYDROX/SIMETH 30 ML, diphenhydrAMINE ELIXIR 75 MG, LIDOCAINE VISCOUS 2% 3... PO SCH (16:11)
[2024-12-16] MEDS: SUCRALFATE 1 GM TAB PO SCH (17:48)
[2024-12-16] MEDS: ATORVASTATIN 40 MG TAB PO SCH (19:43)
[2024-12-16] MEDS: ACETAMINOPHEN TAB 325 MG TAB PO PRN (20:40)
[2024-12-17] MEDS ORDERED: ASPIRIN 81 MG PO SCH (09:00)
[2024-12-17] MEDS: FLUCONAZOLE 100 MG TAB PO SCH (09:01)
[2024-12-17] MEDS: VANCOMYCIN TROUGH DUE 1 EACH MISC MISCELLANE ONE (11:37)
[2024-12-17 11:56] LABS: African American GFR (CKD) >90 (>60 ml/min/1.73 sqM); Non-African American GFR(CKD) >90 (>60 ml/min/1.73 sqM)
--- NOTE | 2024-12-17 14:09 | PN ---
PROGRESS NOTE DATE OF SERVICE: 12/16/2024 CHIEF COMPLAINT: Pulmonary emboli. HISTORY OF PRESENT ILLNESS: This lady is still very dyspneic. She just got back from her procedure. It sounds as though some clot was removed and that some of it may have already become more organized, suggesting that it had been there for some length of time. PHYSICAL EXAMINATION: GENERAL: She is awake and alert. LUNGS: She is tachypneic. Breath sounds are heard bilaterally with scattered rales. CARDIAC: Normal. IMPRESSION: 1. Pulmonary emboli. 2. Carcinoma of the lung. PLAN: Continue supportive care and gradually increase her activity. MMODL / IJN: [id number] /
--- NOTE | 2024-12-17 18:45 | P.PN ---
Subjective Progress Note Date: 12/17/24 Patient is a 59-year-old female with past medical history significant for non- small cell lung cancer diagnosed back in September,. Dr. 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 Follow-up PET showing areas of uptake within the right supraclavicular region as well as the mediastinum. She has been following with an oncologist Dr. Gordillo, out of the [facility] [place]. She recently completed 6 weeks of radiation to the chest as well as 7 weeks of chemotherapy with CarboTaxol. Last dose of chemotherapy treatment was 2 weeks ago today. Additionally, patient has history of hyperlipidemia, hypertension. Her primary care provider is Dr. Paz. Came to the emergency department for evaluation last night. She was having shortness of breath and increased heart rate with palpitations on exertion. She thought she was dehydrated. Reports trouble/painful swallowing following radiation to her chest. Workup in the ED including a D-dimer which was elevated in setting chest CT angiogram which was positive for saddle pulmonary embolism with multiple bilateral segmental and subsegmental pulmonary emboli. Flattening of the interventricular septum concerning for early right-sided heart strain. No significant reflux into the IVC or dilation of the main pulmonary artery. Additionally, improvement in patient's right bulky mass with increased aeration. There was developing groundglass opacities within the right lower lobe and lingula. Differential including radiation pneumonitis, infectious process, inflammatory process, or possible pulmonary infarcts. Labs including a CBC with a WBC count of 6.9, hemoglobin 10.7 g/dL, platelets 178. D-dimer 11.8. CMP unremarkable, electrolytes WDL with exception of sodium 132. Glucose 137. Troponin 0.042. Viral 4 Plex negative for influenza A/B, RSV, COVID. I am seeing this patient in emergency department. Heparin is being started at the moment. She is on 2 L/min nasal cannula which she states she wears at home. S he is tachycardic with a heart rate in the 120s. Blood pressure is normotensive. There is a 1 L fluid bolus ordered. Endorses above-mentioned symptoms. She has had a nonproductive cough over the last 2 weeks. Febrile on arrival, possibility due to PE. She was placed on empiric antibiotics in the ED. She denies any chest pain, hemoptysis, lightheadedness or syncopal events. No unilateral lower extremity edema. No previous history of PE. Vascular team on- call for EKOS was notified On 12/16/2024, the patient continues to have some tachycardia with limited amount of activity. No significant shortness of breath at rest. No chest pain. No pleurisy or hemoptysis. The patient remains on IV heparin. On a separate note, the patient had an echocardiogram that showed mild pulm hypertension. Preserved LV function. Dilatation of the RV and the patient was seen by vascular surgery and based on submassive nature of the pulm embolism, the patient is to undergo a clot thrombectomy by vascular surgery. No new complaints otherwise. The white cell count is 6.1, hemoglobin 9.9, PTT is therapeutic, BUN is 9 with a creatinine 0.5. Procalcitonin level was less than 0.2. Troponins were p ositive. The patient is currently on 3 L of oxygen by nasal cannula with a pulse ox of 96%. Continues to have some mild sinus tachycardia. On 12/17/2024, the patient underwent a clot thrombectomy. However, the patient's procedure was not fully successful as the amount of clot that was extracted was minimal due to organizing clot formation. Based on that, the patient was kept on IV heparin. She continues to have some mild tachycardia. She continues to have exertional tachycardia and she still hypoxic at 3 L of oxygen by nasal cannula with a pulse ox of 96%. The plan is to continue anticoagulation for now. Will discuss the possibility of an EKOS with vascular surgery. Hemodynamically stable. No chest pain. No pleurisy or hemoptysis. Objective - Vital Signs Vital signs: Vital Signs Temp 98.4 F 12/17/24 08:51 Pulse 108 H 12/17/24 08:51 Resp 20 12/17/24 08:51 BP 108/67 12/17/24 08:51 Pulse Ox 97 12/17/24 08:51 FiO2 Intake & Output 12/16/24 12/17/24 12/17/24 18:59 06:59 18:59 Intake Total 357.103 102.627 155.27 Balance 357.103 102.627 155.27 Weight 84.2 kg 85.3 kg Intake: IV 100 15 Invasive Line 3 15 Intake, IV Titration 257.103 102.627 140.27 Amount Heparin Sod,Pork in 0.45% 257.103 102.627 140.27 NaCl 25,000 unit In 0.45 % NaCl 1 250ml.bag @ 18 UNITS/KG/HR 14.696 mls/hr IV .Q17H1M [facility] Rx#: [id number] Other: Voiding Method Bedpan Bedpan Bedside Commode # Voids 1 2 - Exam GENERAL EXAM: Alert, 59-year-old female on 2 L/min nasal cannula, comfortable in no apparent distress. Tachycardic 120 bpm, normotensive. IV Heparin currently being started HEAD: Normocephalic and atraumatic EYES: Normal reaction of pupils, equal size. NOSE: Clear with pink turbinates. THROAT: No erythema or exudates. NECK: No masses, no JVD. CHEST: No chest wall deformity. Radiation burn right chest. pink, healing well LUNGS: Equal air entry with no crackles, wheeze, rhonchi or dullness. No conversational dyspnea or accessory muscle use.. CVS: S1 and S2 normal with no audible murmur, regular rhythm. No extra heart sounds ABDOMEN: No hepatosplenomegaly, active bowel sounds, no guarding or rigidity. SPINE: No scoliosis or deformity SKIN: No rashes CENTRAL NERVOUS SYSTEM: No focal deficits, tone is normal in all 4 extremities. EXTREMITIES: There is no peripheral edema, clubbing, or cyanosis. Peripheral pulses are intact. - Labs CBC & Chem 7: 12/15/24 06:43 12/17/24 11:18 Labs: Abnormal Lab Results - Last 24 Hours (Table) 12/16/24 12/17/24 Range/Units 21:37 06:10 APTT 40.6 H 44.5 H (22.0-30.0) sec Microbiology - Last 24 Hours (Table) 12/15/24 21:14 Nasal Screen MRSA/MSSA - Final Nasal Swab 12/14/24 23:10 Blood Culture - Preliminary Blood Assessment and Plan Assessment: Saddle pulmonary embolism, with CT evidence of possible right-sided heart strain, submassive; chest CT angiogram which was positive for saddle pulmonary embolism with multiple bilateral segmental and subsegmental pulmonary emboli. Flattening of the interventricular septum concerning for early right-sided heart strain. No significant reflux into the IVC or dilation of the main pulmonary artery. The patient has submassive pulmonary embolism, positive troponins, sinus tachycardia still present and the patient is having exertional tachycardia and shortness of breath. The patient is post clot thrombectomy. Acute dyspnea, secondary to above, remains unchanged Acute hypoxic respiratory failure, currently on 3 L by nasal cannula Squamous cell carcinoma of the lung, status post chemo/radiation. 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 Follow-up PET showing areas of uptake within the right supraclavicular region as well as the mediastinum. patient has just recently completed 6 weeks of radiation and 7 weeks of chemotherapy with CarboTaxol. She follows with oncologist out of the [facility] Groundglass opacity; chest CT showing improvement in patient's right bulky mass with increased aeration. There was developing groundglass opacities within the right lower lobe and lingula. Differential including radiation pneumonitis, infectious process, or possible pulmonary infarcts suggested by radiologist Chronic hypoxemic respiratory failure, currently on 2 L/min nasal cannula which she wears at home Febrile Sinus tachycardia Hyponatremia, recovered History of hypertension History of hyperlipidemia Former tobacco smoker, quit prior to September 2024 Plan: The patient had limited success with clot thrombectomy and I was told that the clots were somewhat organized. She is still symptomatic, increasing the proximal nasal cannula and she has some exertional tachycardia. Hemodynamically stable. Consider the possibility of an EKOS, intra-arterial thrombolytic therapy. Based on this, the patient will be kept on IV heparin and this would be discussed further with vascular surgery. Keep the patient on 3 L O2 by nasal cannula Continues to be on IV heparin per protocol Monitor APTT per protocol Monitor blood pressures Will continue to follow-up and monitor the patient's progress. On a separate note, there has been positive response with chemoradiation therapy regarding her non-small cell lung cancer. Will continue to follow. CAT scan of the abdomen and pelvis showed no acute abdominal/pelvic process.
[2024-12-17] MEDS: VANCOMYCIN 1,500 MG in SODIUM CHLORIDE 0.9% 500 ML 500 ML IVPB SCH (20:12)
--- NOTE | 2024-12-17 23:36 | PN ---
PROGRESS NOTE DATE OF SERVICE: 12/17/2024 CHIEF COMPLAINT: Multiple pulmonary emboli. HISTORY OF PRESENT ILLNESS: This lady is still very dyspneic. She has a great deal of dyspnea with minimal exertion. She denies any chest pain. PHYSICAL EXAMINATION: CHEST: Reveals breath sounds on both sides with scattered rales. GENERAL: She is pale. She is tachypneic. CARDIAC: Normal. ABDOMEN: Soft, nontender. IMPRESSION: 1. Multiple pulmonary emboli. 2. History of carcinoma of the lung. 3. Hypoxia. PLAN: No change in program. Hopefully, her respiratory function can improve before she is discharge. MMODL / IJN: [id number] /
[2024-12-18 12:20] VITALS: BMI 29.7
--- NOTE | 2024-12-18 13:31 | P.PN ---
Subjective Progress Note Date: 12/18/24 Principal diagnosis: BLE DVT, saddle PE. Just completed definitive Tx for Sq cell lung carcinoma In f/u today pt is SOB when speaking, she reports that she can only move a few feet before she is winded. Does not feel that her breathing is significantly improved since admit. No bleeding reported. Objective - Vital Signs Vital signs: Vital Signs Temp 98.1 F 12/18/24 08:00 Pulse 103 H 12/18/24 12:00 Resp 18 12/18/24 08:00 BP 125/87 12/18/24 12:00 Pulse Ox 99 12/18/24 12:00 FiO2 Intake & Output 12/17/24 12/18/24 12/18/24 18:59 06:59 18:59 Intake Total 395.27 248.607 840 Balance 395.27 248.607 840 Weight 86 kg 86 kg Intake: IV 15 Invasive Line 3 15 Intake, IV Titration 140.27 248.607 600 Amount Cefepime 2 gm In Sodium 100 Chloride 0.9% 100 ml @ 25 mls/hr IVPB Q8HR [facility] Rx# :[id number] Heparin Sod,Pork in 0.45% 140.27 248.607 NaCl 25,000 unit In 0.45 % NaCl 1 250ml.bag @ 18 UNITS/KG/HR 14.696 mls/hr IV .Q17H1M [facility] Rx#: [id number] Sodium Chloride 0.9% 1, 500 000 ml @ 100 mls/hr IV . Q10H [facility] Rx#:[id number] Oral 240 240 Other: Voiding Method Bedside Commode Bedside Commode Bedside Commode # Voids 1 1 # Bowel Movements 0 - Constitutional General appearance: Present: average body habitus, cooperative, mild distress - EENT Eyes: Present: anicteric sclerae, EOMI ENT: Present: hearing grossly normal - Respiratory Details: resp labored at rest, worse when speaking - Peripheral edema leg Peripheral Edema: bilateral: 1+ - Integumentary Integumentary: Present: normal - Neurologic Neurologic: Present: CNII-XII intact - Musculoskeletal Musculoskeletal: Present: strength equal bilaterally - Psychiatric Psychiatric: Present: A&O x's 3, appropriate affect, intact judgment & insight - Labs CBC & Chem 7: 12/15/24 06:43 12/17/24 11:18 Labs: Abnormal Lab Results - Last 24 Hours (Table) 12/18/24 Range/Units 05:37 APTT 45.9 H (22.0-30.0) sec Microbiology - Last 24 Hours (Table) 12/16/24 21:37 Blood Culture - Preliminary Blood Assessment and Plan (1) DVT (deep venous thrombosis) Current Visit: Yes Status: Acute Priority: High Code(s): I82.409 - ACUTE EMBOLISM AND THOMBOS UNSP DEEP VN UNSP LOWER EXTREMITY SNOMED Code(s): 832865527 (2) Pulmonary embolism Current Visit: Yes Status: Acute Priority: High Code(s): I26.99 - OTHER PULMONARY EMBOLISM WITHOUT ACUTE COR PULMONALE SNOMED Code(s): 60814816 (3) Squamous cell lung cancer Current Visit: Yes Status: Acute Priority: Medium Code(s): C34.90 - MALIGNANT NEOPLASM OF UNSP PART OF UNSP BRONCHUS OR LUNG SNOMED Code(s): 738658957 Plan: Saddle PE, BLE DVT -Presented with progressive shortness of breath x 1 week -CTA chest reporting saddle PE with multiple bilateral segmental and subsegmental pulmonary emboli. Concerning for early right heart strain, ECHO reporting Huitron's sign. -Bilateral lower extremity Dopplers positive for occlusive deep vein thrombosis of the right popliteal and posterior tibial and peroneal veins. Nearly completely occlusive deep venous thrombosis of the left posterior tibial vein. -S/P Vascular intervention-unable to extract any significant amt of clot. -Agree with Heparin drip until resp status and cardiac status are improved/stable. -DOAC Rx sent, CM consulted to verify copay. -Provoked DVT/PE-malignancy, recent aggressive treatment. Recommend minimum of 6 months of anticoagulation, pending status of malignancy at that time -Vascular surgery/Cardiology following Aquamous cell carcinoma of the lung -Pt follows with Dr. Gordillo at [facility]. -Completed 7 cycles of weekly Carbo/Taxol with concurrent RT, finishing treatment 2 weeks ago. Usually a definitive treatment when administered this way -CTA chest reporting overall improved appearance of the right perihilar lung malignancy and right supraclavicular and mediastinal adenopathy from prior exam. -Treatment response scans and subsequent f/u with her Primary Oncologist is already scheduled for 01/02. She will keep appt
--- NOTE | 2024-12-18 14:18 | P.PN ---
Subjective Progress Note Date: 12/18/24 Principal diagnosis: PE Patient is seen and examined today as a follow-up. She is on 3 L nasal cannula saturation 94%. States she is still short of breath when she is getting up and trying to go to the bathroom and has elevated heart rate with minimal exertion. She is status post thrombectomy where minimal clot was retrieved and thought to be likely more chronic clot. She remains on IV heparin drip at this time. Oncology is following. Objective - Vital Signs Vital signs: Vital Signs Temp 98.1 F 12/18/24 08:00 Pulse 103 H 12/18/24 12:00 Resp 18 12/18/24 08:00 BP 125/87 12/18/24 12:00 Pulse Ox 99 12/18/24 12:00 FiO2 Intake & Output 12/17/24 12/18/24 12/18/24 18:59 06:59 18:59 Intake Total 395.27 248.607 840 Balance 395.27 248.607 840 Weight 86 kg 86 kg Intake: IV 15 Invasive Line 3 15 Intake, IV Titration 140.27 248.607 600 Amount Cefepime 2 gm In Sodium 100 Chloride 0.9% 100 ml @ 25 mls/hr IVPB Q8HR [facility] Rx# :[id number] Heparin Sod,Pork in 0.45% 140.27 248.607 NaCl 25,000 unit In 0.45 % NaCl 1 250ml.bag @ 18 UNITS/KG/HR 14.696 mls/hr IV .Q17H1M [facility] Rx#: [id number] Sodium Chloride 0.9% 1, 500 000 ml @ 100 mls/hr IV . Q10H [facility] Rx#:[id number] Oral 240 240 Other: Voiding Method Bedside Commode Bedside Commode Bedside Commode # Voids 1 1 # Bowel Movements 0 - Exam General appearance: The patient is alert, oriented, appears in no acute distress. HET: Head is normocephalic and atraumatic. Pupils are equal and reactive. Neck: Supple. Heart: Regular. Lungs: Clear to auscultation bilaterally. Equal expansion, normal respiratory effort. Some increased respiratory effort with exertion. Abdomen: Soft, nontender, nondistended. Extremities: Normal skin color and turgor. Neurological: No focal deficits. - Labs CBC & Chem 7: 12/15/24 06:43 12/17/24 11:18 Labs: Abnormal Lab Results - Last 24 Hours (Table) 12/18/24 Range/Units 05:37 APTT 45.9 H (22.0-30.0) sec Microbiology - Last 24 Hours (Table) 12/16/24 21:37 Blood Culture - Preliminary Blood Assessment and Plan Assessment: 1. Saddle pulmonary embolism with evidence of right heart strain status post pulmonary mechanical thrombectomy 2. Bilateral lower extremity deep vein thrombosis 3. Non-small cell lung cancer 4. Elevated troponins Plan: 1. May transition to oral anticoagulation per recommendations from 2. Patient is status post mechanical pulmonary thrombectomy 3. Patient is a poor candidate for EKOS procedure secondary to non-small cell lung cancer and to high risk of a bleed. No further vascular surgical intervention recommended. 4. Continue with recommendations from pulmonology and oncology Thank you for this consultation, we will continue to follow. The impression and plan of care has been dictated as directed. Dr. Claudio I performed a history and examination of this patient, discussed the same with the dictator. I agree with the dictator's note ,documented as a scribe. Any additional findings or plans will be noted.
--- NOTE | 2024-12-18 18:06 | P.PN ---
Subjective Progress Note Date: 12/18/24 Principal diagnosis: Acute submassive pulmonary embolism with right sided heart strain Patient is a 59-year-old female with past medical history significant for non- small cell lung cancer diagnosed back in September,. Dr. 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 Follow-up PET showing areas of uptake within the right supraclavicular region as well as the m ediastinum. She has been following with an oncologist Dr. Gordillo, out of the [facility] [place]. She recently completed 6 weeks of radiation to the chest as well as 7 weeks of chemotherapy with CarboTaxol. Last dose of chemotherapy treatment was 2 weeks ago today. Additionally, patient has history of hyperlipidemia, hypertension. Her primary care provider is Dr. Paz. Came to the emergency department for evaluation last night. She was having shortness of breath and increased heart rate with palpitations on exertion. She thought she was dehydrated. Reports trouble/painful swallowing following radiation to her chest. Workup in the ED including a D-dimer which was elevated in setting chest CT angiogram which was positive for saddle pulmonary embolism with multiple bilateral segmental and subsegmental pulmonary emboli. Flattening of the interventricular septum concerning for early right-sided heart strain. No significant reflux into the IVC or dilation of the main pulmonary artery. Additionally, improvement in patient's right bulky mass with increased aeration. There was developing groundglass opacities within the right lower lobe and lingula. Differential including radiation pneumonitis, infectious process, inflammatory process, or possible pulmonary infarcts. Labs including a CBC with a WBC count of 6.9, hemoglobin 10.7 g/dL, platelets 178. D-dimer 11.8. CMP unremarkable, electrolytes WDL with exception of sodium 132. Glucose 137. Troponin 0.042. Viral 4 Plex negative for influenza A/B, RSV, COVID. I am seeing this patient in emergency department. Heparin is being started at the moment. She is on 2 L/min nasal cannula which she states she wears at home. She is tachycardic with a heart rate in the 120s. Blood pressure is normotensive. There is a 1 L fluid bolus ordered. Endorses above-mentioned symptoms. She has had a nonproductive cough over the last 2 weeks. Febrile on arrival, possibility due to PE. She was placed on empiric antibiotics in the ED. She denies any chest pain, hemoptysis, lightheadedness or syncopal events. No unilateral lower extremity edema. No previous history of PE. Vascular team on- call for EKOS was notified On 12/16/2024, the patient continues to have some tachycardia with limited amount of activity. No significant shortness of breath at rest. No chest pain. No pleurisy or hemoptysis. The patient remains on IV heparin. On a separate note, the patient had an echocardiogram that showed mild pulm hypertension. Preserved LV function. Dilatation of the RV and the patient was seen by vascular surgery and based on submassive nature of the pulm embolism, the patient is to undergo a clot thrombectomy by vascular surgery. No new complaints otherwise. The white cell count is 6.1, hemoglobin 9.9, PTT is therapeutic, BUN is 9 with a creatinine 0.5. Procalcitonin level was less than 0.2. Troponins were positive. The patient is currently on 3 L of oxygen by nasal cannula with a pulse ox of 96%. Continues to have some mild sinus tachycardia. On 12/17/2024, the patient underwent a clot thrombectomy. However, the patient's procedure was not fully successful as the amount of clot that was extracted was minimal due to organizing clot formation. Based on that, the patient was kept on IV heparin. She continues to have some mild tachycardia. She continues to have exertional tachycardia and she still hypoxic at 3 L of oxygen by nasal cannula with a pulse ox of 96%. The plan is to continue anticoagulation for now. Will discuss the possibility of an EKOS with vascular surgery. He modynamically stable. No chest pain. No pleurisy or hemoptysis. Patient was seen and examined today on 12/18/2024, patient underwent unsuccessful procedure of clot evacuation due to organizing clot formation patient remains on heparin, continues to have shortness of breath with any activity maintained on 3 L nasal cannula O2 saturation is 99% remains tachycardic and continues to have minimal exertional dyspnea. Patient is being followed by vascular surgery still wondering if the patient could undergo EKOS thrombolysis with vascular surgery, or possibly consider transferring the patient to a tertiary care center for further input on her pulmonary embolism treatment. PTT is therapeutic chest x- ray is showing improvement in her right upper lobe mass compared to how it was at the time of diagnosis. Patient has received chemo and radiation treatment for her right upper lobe squamous cell lung cancer at [facility]. Objective - Vital Signs Vital signs: Vital Signs Temp 98.1 F 12/18/24 08:00 Pulse 103 H 12/18/24 14:00 Resp 18 12/18/24 14:00 BP 125/87 12/18/24 12:00 Pulse Ox 99 12/18/24 12:00 FiO2 Intake & Output 12/17/24 12/18/24 12/18/24 18:59 06:59 18:59 Intake Total 395.27 248.607 960 Balance 395.27 248.607 960 Weight 86 kg 86 kg Intake: IV 15 Invasive Line 3 15 Intake, IV Titration 140.27 248.607 600 Amount Cefepime 2 gm In Sodium 100 Chloride 0.9% 100 ml @ 25 mls/hr IVPB Q8HR [facility] Rx# :[id number] Heparin Sod,Pork in 0.45% 140.27 248.607 NaCl 25,000 unit In 0.45 % NaCl 1 250ml.bag @ 18 UNITS/KG/HR 14.696 mls/hr IV .Q17H1M [facility] Rx#: [id number] Sodium Chloride 0.9% 1, 500 000 ml @ 100 mls/hr IV . Q10H [facility] Rx#:[id number] Oral 240 360 Other: Voiding Method Bedside Commode Bedside Commode Bedside Commode # Voids 1 1 # Bowel Movements 0 - Exam GENERAL EXAM: 59-year-old female anxious not in distress on 3 L nasal cannula HEAD: Normocephalic and atraumatic EYES: Normal reaction of pupils, equal size. NOSE: Clear with pink turbinates. THROAT: No erythema or exudates. NECK: No masses, no JVD. CHEST: No chest wall deformity. Radiation burn right chest. pink, healing well LUNGS: Equal air entry with no crackles, wheeze, rhonchi or dullness. No conversational dyspnea or accessory muscle use.. CVS: S1 and S2 normal with no audible murmur, regular rhythm. No extra heart sounds ABDOMEN: No hepatosplenomegaly, active bowel sounds, no guarding or rigidity. SKIN: No rashes CENTRAL NERVOUS SYSTEM: Alert oriented x 3 no gross focal deficit EXTREMITIES: No clubbing edema or cyanosis - Labs CBC & Chem 7: 12/15/24 06:43 12/17/24 11:18 Labs: Abnormal Lab Results - Last 24 Hours (Table) 12/18/24 Range/Units 05:37 APTT 45.9 H (22.0-30.0) sec Microbiology - Last 24 Hours (Table) 12/16/24 21:37 Blood Culture - Preliminary Blood Assessment and Plan Assessment: Impression: Acute saddle pulmonary embolism with right-sided heart strain/submassive status post partially successful thrombectomy/clot evacuation, patient was felt not a good candidate for EKOS thrombolysis as noted by vascular surgery. Persistent dyspnea, unchanged and spite of her procedure. Squamous cell carcinoma status post chemo and radiation Chronic hypoxic respiratory failure on 2 L nasal cannula at home Sinus tachycardia Benign essential hypertension Ex-smoker quit in September 20, 2001 5 Recommendation: Continue heparin Vascular surgery felt that the patient is a poor candidate for EKOS thrombolysis therapy Continue bronchodilators Discussed with the patient, she may consider requesting primary care to transfer to [facility]. Or she can have this done on an outpatient basis once the patient is discharged on oral anticoagulation therapy in the next 24 hours. This has already been recommended by vascular surgery on the case. Long-term prognosis remains relatively poor and guarded Patient remains relatively quite symptomatic. Time with Patient: Less than 30
[2024-12-19 01:27] VITALS: RESP 26
--- NOTE | 2024-12-19 02:32 | PN ---
PROGRESS NOTE CHIEF COMPLAINT: Pulmonary emboli. HISTORY OF PRESENT ILLNESS: This lady is doing about the same. She is still very dyspneic. PHYSICAL EXAM: She has scattered and occasional rales and occasional rhonchi. Cardiac exam is normal. Abdomen is soft, nontender. IMPRESSION: 1. Multiple pulmonary emboli. 2. Non-small cell carcinoma of the lung. PLAN: Continue with light activity and nasal O2. MMODL / IJN: [id number] /
[2024-12-19] MEDS: VANCOMYCIN 1,500 MG in SODIUM CHLORIDE 0.9% 500 ML 500 ML IVPB SCH (04:26)
[2024-12-19 05:10] VITALS: BP 121/83; PULSE 85; TEMP 98.6
[2024-12-19] MEDS ORDERED: VANCOMYCIN TROUGH DUE 1 EACH MISC MISCELLANE ONE (11:00)
--- NOTE | 2024-12-19 19:17 | DS ---
DISCHARGE SUMMARY CHIEF COMPLAINT: Difficulty breathing. HISTORY OF PRESENT ILLNESS AND PHYSICAL EXAMINATION: Details of this lady's history and physical can be found in the initial workup. LABORATORY STUDIES: While she is in the hospital, she had laboratory studies, details of which can be found in the laboratory section of her chart. COURSE IN THE HOSPITAL: After admission, she was placed on bedrest, started intravenous fluids and was found to have a saddle embolus in the lung as well as probable other pulmonary emboli. She was quite dyspneic. She was seen by Vascular surgery and taken to the operating room for retrieval of the clot, which was partially successful. She continued to be quite dyspneic and cardiovascular surgery recommended that she be transferred back to [facility] where she received care for her lung carcinoma. This was arranged. FINAL DIAGNOSES: 1. Pulmonary emboli. 2. Small cell carcinoma of the lung. OPERATIONS: Catheterization, retrieval of clot in the pulmonary artery. CONSULTATIONS: Cardiac surgery. CHRISTIAN / SEBASTIAN: [id number] /
== END 2024-12-19 07:44 | disposition short-term general hospital (02) | DRG 853 ==
LOC: EC 20:38 → 3SCARD 23:18
PROVIDERS: ADMIT Family Medicine; ATTEND Family Medicine
PROC: B31S1ZZ Fluoroscopy of Right Pulmonary Artery using Low Osmolar Contrast (ICD-10-PCS; 2024-12-16)
PROC: 02CR3ZZ Extirpation of Matter from Left Pulmonary Artery, Percutaneous Approach (ICD-10-PCS; principal; 2024-12-16 11:00)
PROC: 02CQ3ZZ Extirpation of Matter from Right Pulmonary Artery, Percutaneous Approach (ICD-10-PCS; 2024-12-16 11:00)
PROC: B31T1ZZ Fluoroscopy of Left Pulmonary Artery using Low Osmolar Contrast (ICD-10-PCS; 2024-12-16 11:00)
PROC: B31U1ZZ Fluoroscopy of Pulmonary Trunk using Low Osmolar Contrast (ICD-10-PCS; 2024-12-16 11:00)
DX: A41.9 Sepsis, unspecified organism (principal); I21.A1 Myocardial infarction type 2; J96.21 Acute and chronic respiratory failure with hypoxia; J18.9 Pneumonia, unspecified organism; I26.09 Other pulmonary embolism with acute cor pulmonale; I82.431 Acute embolism and thrombosis of right popliteal vein; I27.20 Pulmonary hypertension, unspecified; C34.10 Malignant neoplasm of upper lobe, unspecified bronchus or lung; I82.443 Acute embolism and thrombosis of tibial vein, bilateral; E11.9 Type 2 diabetes mellitus without complications; I10 Essential (primary) hypertension; E87.1 Hypo-osmolality and hyponatremia; I47.10 Supraventricular tachycardia, unspecified; Z11.52 Encounter for screening for COVID-19; E78.5 Hyperlipidemia, unspecified; I25.10 Atherosclerotic heart disease of native coronary artery without angina pectoris; Z79.01 Long term (current) use of anticoagulants; Z79.82 Long term (current) use of aspirin; Z79.899 Other long term (current) drug therapy; Z83.3 Family history of diabetes mellitus; Z86.718 Personal history of other venous thrombosis and embolism; Z92.21 Personal history of antineoplastic chemotherapy; Z92.3 Personal history of irradiation; Z99.81 Dependence on supplemental oxygen
CPT/HCPCS: 36415; 37184; 71046; 71275; 74177; 75741; 76937; 80053; 80202; 82565; 83605; 83735; 83880; 84145; 84484; 85025; 85379; 85610; 85730; 87040; 87070; 87636; 93005; 93306; 93970; 94760; 96365; 96366; 96368; 96375; 99291